=== PATIENT | female | born 1965 | race Caucasian/White ===

== ENCOUNTER 2017-04-17 19:39 | Emergency (ER) | payer BC, OTHER ==
[2017-04-17] MEDS ORDERED: LIDOCAINE 1% INJ (10 MG/ML) 10 ML MDV INJ ONE (20:15)
--- NOTE | 2017-04-17 20:23 | ER Document Report ---
HPI - HPI Patient complains to provider of: abscess Onset: Other Onset/Duration: Gradual Quality of pain: Dull Severity: Mild Pain Level: 2 Context: Pt c/o infected ingrown hair to pubic region. Started about one month ago getting worse. Hx of same in past. States usually drained and put on antibiotics. Pt states her blood sugars have been within usual ranges. Associated Symptoms: None Exacerbated by: Denies Relieved by: Denies Similar symptoms previously: Yes Recently seen / treated by doctor: No - ROS ROS below otherwise negative: Yes Systems Reviewed and Negative: Yes All other systems reviewed and negative - CONSTITUTIONAL Constitutional: DENIES: Fever - EENT EENT: DENIES: Congestion - NEURO Neurology: DENIES: Headache - CARDIOVASCULAR Cardiovascular: DENIES: Chest pain - RESPIRATORY Respiratory: DENIES: Trouble Breathing - GASTROINTESTINAL Gastrointestinal: DENIES: Abdominal Pain - REPRODUCTIVE Reproductive: DENIES: : - MUSCULOSKELETAL Musculoskeletal: DENIES: Extremity pain - DERM Skin Color: Erythema Past Medical History - General Information source: Patient - Social History Smoking Status: Current Every Day Smoker Cigarette use (# per day): Yes Frequency of alcohol use: Occasional Drug Abuse: None Lives with: Family Family History: Reviewed & Not Pertinent Patient has suicidal ideation: No Patient has homicidal ideation: No - Past Medical History Cardiac Medical History: Reports: Hx Hypercholesterolemia Neurological Medical History: Reports: Hx Migraine Endocrine Medical History: Reports: Hx Diabetes Mellitus Type 1 Past Surgical History: Reports: Hx Appendectomy, Hx Orthopedic Surgery - bilateral hands, carpal tunnel, left shoulder repair, Hx Tonsillectomy - Immunizations Hx Diphtheria, Pertussis, Tetanus Vaccination: Yes Vertical Provider Document - CONSTITUTIONAL Agree With Documented VS: Yes Exam Limitations: No Limitations General Appearance: WD/WN, No Apparent Distress - INFECTION CONTROL TRAVEL OUTSIDE OF THE [place] IN LAST 30 DAYS: No - HEENT HEENT: Atraumatic, Normocephalic - RESPIRATORY Respiratory: Breath Sounds Normal, No Respiratory Distress O2 Sat by Pulse Oximetry: 98 - CARDIOVASCULAR Cardiovascular: Regular Rate, Regular Rhythm - GI/ABDOMEN Gastrointestinal: Abdomen Soft - MUSCULOSKELETAL/EXTREMETIES Musculoskeletal/Extremeties: MAEW - NEURO Level of Consciousness: Awake, Alert, Appropriate - DERM Integumentary: Abscess - pubis area Course - Re-evaluation Re-evalutation: 04/17/17 20:43 - Vital Signs Vital signs: Temp Pulse Resp BP Pulse Ox 99.0 F 94 186/96 H 98 04/17/17 19:46 04/17/17 19:46 04/17/17 19:46 04/17/17 19:46 Procedures - Incision and Drainage Mid- Groin Type: Simple Anesthetic type: 1% Lidocaine mL's of anesthetic: 2 Blade size: 11 I&D procedure: Shurclens applied Incision Method: Incision made by scalpel Notes: 04/17/17 20:39 1 in hard area to pubic region with small soft area in center. small amount of purulent drainage expressed from wound pubic area. Pt tolerated procedure well. 04/17/17 20:40 Discharge - Discharge Clinical Impression: Abscess of pubic region, Encounter for incision and drainage procedure Condition: Good Disposition: HOME, SELF-CARE Instructions: Abscess ([facility]), Oral Narcotic Medication ([facility]), Trimethoprim- Sulfa ([facility]) Additional Instructions: keep area clean and dry warm compresses take all meds as prescribed follow up with your PCP next week for recheck, or return here if worsens Prescriptions: Oxycodone HCl 5 mg PO PRN PRN #10 tablet PRN Reason: Sulfamethoxazole/Trimethoprim [Septra-Ds 800-160 mg Tablet] 1 tab PO BID #20 tablet Forms: Return to Work
[2017-04-17] MEDS ORDERED: SULFAMETHOXAZOLE/TRIMETHOPRIM 800-160 MG TABLET PO ONE (20:38)
[2017-04-17] MEDS ORDERED: LIDOCAINE 1% INJ-PF (10 MG/ML) 30 ML SDV INJ ONE (20:38)
[2017-04-17] MEDS ORDERED: CEFTRIAXONE INJ 1000 MG VIAL IM ONE (20:38)
[2017-04-17] MEDS ORDERED: HYDROCODONE/ACETAMINOPHEN 5-325 MG 6 TAB/DSPK PO PRN (20:41)
[2017-04-17] MEDS ORDERED: OXYCODONE HCL IR 5 MG TABLET PO ONE (20:48)
[2017-04-17 21:30] VITALS: BP 145/83
== END 2017-04-17 21:27 | disposition home or self-care (01) ==
LOC: ER 19:39
PROC: 0H97XZZ Drainage of Abdomen Skin, External Approach (ICD-10-PCS; principal; 2017-04-17)
DX: L02.219 Cutaneous abscess of trunk, unspecified (principal); F17.210 Nicotine dependence, cigarettes, uncomplicated; E78.00 Pure hypercholesterolemia, unspecified; E10.9 Type 1 diabetes mellitus without complications
CPT/HCPCS: 10060; 99283; 96372; J3490; J0696

== ENCOUNTER → 2017-05-01 | Outpatient (CLI) | payer OTHER ==
--- NOTE | 2017-05-02 09:52 | RADIOLOGY REPORT (SQ) ---
EXAM DESCRIPTION: T SPINE AP/LAT COMPLETED DATE/TIME: 05/01/2017 6:14 pm REASON FOR STUDY: PAIN IN THORACIC SPINE COMPARISON: None. NUMBER OF VIEWS: Two views. TECHNIQUE: AP and lateral radiographic images acquired of the thoracic spine. LIMITATIONS: None. FINDINGS: MINERALIZATION: Normal. ALIGNMENT: Normal. No scoliosis. VERTEBRAE: No fracture or bone lesion. Maintained height, normal segmentation. DISCS: Multilevel disc space narrowing with osteophytes. HARDWARE: None in the spine. MEDIASTINUM AND SOFT TISSUES: Normal heart size and aortic contour. No soft tissue abnormality. VISUALIZED LUNG SUTTON: Clear. OTHER: There is very mild anterior wedging of L1. IMPRESSION: SPONDYLOSIS WITHOUT BONE LESION OR FRACTURE. TECHNICAL DOCUMENTATION: JOB ID: [id number] [employer]- All Rights Reserved
== END ==
LOC: RAD 17:59
PROVIDERS: ATTEND Anesthesiology Pain Medicine
DX: M54.6 Pain in thoracic spine (principal); M47.894 Other spondylosis, thoracic region
CPT/HCPCS: 72070

== ENCOUNTER → 2017-07-19 | Outpatient (CLI) | payer OTHER ==
--- NOTE | 2017-07-19 14:20 | RADIOLOGY REPORT (SQ) ---
EXAM DESCRIPTION: NM GASTRIC EMPTYING STUDY COMPLETED DATE/TIME: 07/19/2017 1:27 pm REASON FOR STUDY: EARLY SATIETY (R68.81) R68.81 EARLY SATIETY COMPARISON: None. RADIONUCLIDE AND DOSE: The route of agent administration: Oral. 2.09 millicuries Tc-99m Sulfur Colloid. TECHNIQUE: Serial images acquired to 4 hours with each image recorded over a 30 minute time frame. I mage intensity values plotted with respect to time with linear regression algorithm. LIMITATIONS: None. FINDINGS: Patient was observed for 4 hours. Gastric emptying at 60 minutes was 19%. Gastric emptying at 90 minutes was 35%. Gastric emptying at 120 minutes was 51% Gastric emptying at 240 minutes was 87%. IMPRESSION: NORMAL 4 HOUR GASTRIC EMPTYING. TECHNICAL DOCUMENTATION: JOB ID: [id number] [employer]- All Rights Reserved
== END ==
LOC: RAD 07:39
PROVIDERS: ATTEND Internal Medicine Gastroenterology
DX: R68.81 Early satiety (principal)
CPT/HCPCS: 78264; A9541

== ENCOUNTER 2017-08-09 19:09 | Emergency (ER) | payer OTHER ==
[2017-08-09] MEDS ORDERED: LIDOCAINE 1%/EPINEPHRINE INJ 20 ML VIAL INJ ONE (19:37)
--- NOTE | 2017-08-09 20:19 | ER Document Report ---
HPI - HPI Patient complains to provider of: abscess Onset: Other - 9 months Onset/Duration: Persistent Quality of pain: Achy Pain Level: 2 Context: Patient presents complaining of chronic draining skin lesion to the perineum. Patient states that she has seen her primary doctor as well as a labor relations worker for this in the past. Patient states that she has had drainage from this lesion for the past 6 weeks. Patient denies any fever. Patient is concerned she has hidradenitis supurativa Associated Symptoms: Other - Draining skin lesion to perineum. denies: Fever Exacerbated by: Denies Relieved by: Denies Similar symptoms previously: Yes Recently seen / treated by doctor: No - ROS ROS below otherwise negative: Yes Systems Reviewed and Negative: Yes All other systems reviewed and negative - CONSTITUTIONAL Constitutional: DENIES: Fever, Chills - GASTROINTESTINAL Gastrointestinal: DENIES: Abdominal Pain, Nausea - REPRODUCTIVE Reproductive: DENIES: : - DERM Notes: draining abscess Past Medical History - General Information source: Patient - Social History Smoking Status: Current Every Day Smoker Frequency of alcohol use: Occasional Drug Abuse: None Occupation: [employer] Lives with: Spouse/Significant other Family History: Reviewed & Not Pertinent - Past Medical History Cardiac Medical History: Reports: Hx Hypercholesterolemia Neurological Medical History: Reports: Hx Migraine Endocrine Medical History: Reports: Hx Diabetes Mellitus Type 1 Renal/ Medical History: Denies: Hx Peritoneal Dialysis GI Medical History: Reports: Other - Gastroparesis Past Surgical History: Reports: Hx Appendectomy, Hx Orthopedic Surgery - bilateral hands, carpal tunnel, left shoulder repair, Hx Tonsillectomy - Immunizations Hx Diphtheria, Pertussis, Tetanus Vaccination: Yes Vertical Provider Document - CONSTITUTIONAL Agree With Documented VS: Yes Exam Limitations: No Limitations General Appearance: WD/WN, No Apparent Distress - INFECTION CONTROL TRAVEL OUTSIDE OF THE [place] IN LAST 30 DAYS: No - HEENT HEENT: Atraumatic, Normocephalic - NECK Neck: Normal Inspection, Supple - RESPIRATORY Respiratory: Breath Sounds Normal, No Respiratory Distress O2 Sat by Pulse Oximetry: 98 - CARDIOVASCULAR Cardiovascular: Regular Rate, Regular Rhythm - BACK Back: Normal Inspection - MUSCULOSKELETAL/EXTREMETIES Musculoskeletal/Extremeties: FRANCISCO GAGE - NEURO Level of Consciousness: Awake, Alert, Appropriate Motor/Sensory: No Motor Deficit - DERM Integumentary: Warm, Dry Notes: Patient was spontaneously draining open comedone that has a palpable nodular lesion under the skin concerning for sinus tract. Normal skin color, no concern for cellulitis Course - Vital Signs Vital signs: Temp Pulse Resp BP Pulse Ox 98.9 F 96 18 139/79 H 98 08/09/17 19:16 08/09/17 19:16 08/09/17 19:16 08/09/17 19:16 08/09/17 19:16 Discharge - Discharge Clinical Impression: Hidradenitis Condition: Stable Disposition: HOME, SELF-CARE Instructions: Clindamycin ([facility]) Additional Instructions: Return immediately for any new or worsening symptoms Followup with your primary care provider, call tomorrow to make a followup appointment Follow-up with a surgeon for further management Follow up with a labor relations worker for further evaluation Prescriptions: Clindamycin HCl [Cleocin Hcl] 300 mg PO QID #28 capsule Naproxen [Naprosyn 250 Nmg Tablet] 1 tab PO BID #14 tablet Referrals: [facility] [Provider Group] - Follow up in 3-5 days
[2017-08-09] MEDS ORDERED: CLINDAMYCIN HCL 150 MG CAPSULE PO ONE (20:21)
[2017-08-09 21:06] VITALS: BP 126/75
== END 2017-08-09 20:40 | disposition home or self-care (01) ==
LOC: ER 19:09
DX: L73.2 Hidradenitis suppurativa (principal); L02.215 Cutaneous abscess of perineum; F17.200 Nicotine dependence, unspecified, uncomplicated
CPT/HCPCS: 99282

== ENCOUNTER 2017-12-23 19:40 | Emergency (ER) | payer OTHER ==
[2017-12-23] MEDS ORDERED: CLINDAMYCIN HCL 150 MG CAPSULE PO ONE (20:25)
[2017-12-23] MEDS ORDERED: IBUPROFEN 800 MG TABLET PO ONE (20:29)
--- NOTE | 2017-12-23 20:33 | ER Document Report ---
ED Skin Rash/Insect Bite/Abscs - General Chief Complaint: Abscess Stated Complaint: ABSCESS Time Seen by Provider: 12/23/17 19:58 Mode of Arrival: Ambulatory Information source: Patient Notes: 52-year-old female presents to ED for an abscess to the left mons pubis. She states she has had these multiple times over the years and has been diagnosed with hydradenitis and has frequent abscesses. She states she has been cultured multiple times and never has MRSA. She states she went to a surgeon recently and they told her to use warm packs and other home remedies. She states she then went to a urgent care and they told her there was nothing in it that she just needed to do warm soaks. TRAVEL OUTSIDE OF THE [place] IN LAST 30 DAYS: No - HPI Patient complains to provider of: Tender/swollen area Onset: Other - States she gets them frequently this and has been slowly growing for about 4 months Onset/Duration: Gradual Quality of pain: Sharp Severity: Moderate Pain Level: 2 Skin Character: Abscess Quality of rash: Painful Identify cause: No Exacerbated by: Denies Relieved by: Denies Similar symptoms previously: Yes Recently seen / treated by doctor: Yes - Related Data Allergies/Adverse Reactions: codeine [Codeine] Allergy (Verified 12/23/17 19:41) acetaminophen [From Tylenol] Adverse Reaction (Verified 12/23/17 19:41) Past Medical History - General Information source: Patient - Social History Smoking Status: Current Every Day Smoker Cigarette use (# per day): Yes - One third pack per day Chew tobacco use (# tins/day): No Smoking Education Provided: Yes - Warm and Frequency of alcohol use: Social Drug Abuse: None Occupation: Call center Lives with: Spouse/Significant other Family History: Arthritis, CAD, CVA, DM, Hyperlipidemia, Hypertension. denies: COPD, Malignancy, Thyroid Disfunction Patient has suicidal ideation: No Patient has homicidal ideation: No - Past Medical History Cardiac Medical History: Reports: Hx Hypercholesterolemia Pulmonary Medical History: Reports: None EENT Medical History: Reports: None Neurological Medical History: Reports: Hx Migraine Endocrine Medical History: Reports: Hx Diabetes Mellitus Type 1 Renal/ Medical History: Reports: None Malignancy Medical History: Reports: None GI Medical History: Reports: Other - Gastroparesis Musculoskeltal Medical History: Reports Hx Musculoskeletal Deformity, Reports Hx Musculoskeletal Trauma Skin Medical History: Reports Hx Cellulitis, Denies Hx MRSA, Reports Other - Hydradenitis Psychiatric Medical History: Reports: None Traumatic Medical History: Reports: None Infectious Medical History: Reports: None Past Surgical History: Reports: Hx Appendectomy, Hx Hysterectomy, Hx Orthopedic Surgery - bilateral hands, carpal tunnel, left shoulder repair, Hx Tonsillectomy - Immunizations Hx Diphtheria, Pertussis, Tetanus Vaccination: Yes Review of Systems - Review of Systems Constitutional: No symptoms reported EENT: No symptoms reported Cardiovascular: No symptoms reported Respiratory: No symptoms reported Gastrointestinal: No symptoms reported Genitourinary: No symptoms reported Female Genitourinary: Other - Hidradenitis to the mons pubis Musculoskeletal: No symptoms reported Skin: Other - Abscess left mons pubis Hematologic/Lymphatic: No symptoms reported Neurological/Psychological: No symptoms reported -: Yes All other systems reviewed and negative Physical Exam - Vital signs Vitals: Temp Pulse Resp BP Pulse Ox 98.4 F 92 16 132/72 H 99 12/23/17 19:46 12/23/17 19:46 12/23/17 19:46 12/23/17 19:46 12/23/17 19:46 Interpretation: Normal - General General appearance: Appears well, Alert - HEENT Head: Normocephalic, Atraumatic Eyes: Normal Pupils: PERRL - Respiratory Respiratory status: No respiratory distress Chest status: Nontender Breath sounds: Normal Chest palpation: Normal - Cardiovascular Rhythm: Regular Heart sounds: Normal auscultation Murmur: No - Abdominal Inspection: Normal Distension: No distension Bowel sounds: Normal Tenderness: Nontender Organomegaly: No organomegaly - Back Back: Normal, Nontender - Extremities General upper extremity: Normal inspection, Nontender, Normal color, Normal ROM , Normal temperature General lower extremity: Normal inspection, Nontender, Normal color, Normal ROM , Normal temperature, Normal weight bearing. No: Sayda's sign - Neurological Neuro grossly intact: Yes Cognition: Normal Orientation: AAOx4 [place] Coma Scale Eye Opening: Spontaneous [place] Coma Scale Verbal: Oriented [place] Coma Scale Motor: Obeys Commands [place] Coma Scale Total: 15 Speech: Normal Motor strength normal: LUE, RUE, LLE, RLE Sensory: Normal - Psychological Associated symptoms: Normal affect, Normal mood - Skin Skin Temperature: Warm Skin Moisture: Dry Skin Color: Normal Skin irregularity: Abscess - Left mons pubis Course - Re-evaluation Re-evalutation: 12/23/17 20:50 I&D of abscess completed. Patient was treated with clindamycin in the ED as well as ibuprofen. Patient was discharged home with prescription for Bactrim and Keflex and Vicoprofen. Changed antibiotics due to the efficacy of Bactrim and Keflex for this patient. Wound culture sent again to ensure there was no MRSA. Patient was discharged with instructions to follow-up with her primary doctor. Patient verbalized understanding of instructions and agreement with treatment plan. - Vital Signs Vital signs: Temp Pulse Resp BP Pulse Ox 98.4 F 92 16 132/72 H 99 12/23/17 19:46 12/23/17 19:46 12/23/17 19:46 12/23/17 19:46 12/23/17 19:46 Procedures - Incision and Drainage Left mons pubis Time completed: 20:35 Type: Simple Anesthetic type: 1% Lidocaine mL's of anesthetic: 5 Blade size: 11 I&D procedure: Betadine prep applied, Other Incision Method: Incision made by scalpel Amount/type of drainage: Large amount of purulent drainage Discharge - Discharge Clinical Impression: abscess left side of mons pubis Condition: Stable Disposition: HOME, SELF-CARE Additional Instructions: ABSCESS: You have an abscess (boil). This a pus-forming infection, usually due to staph. Some boils may be left to drain on their own, but most require lancing. From the time the tender lump first appears, it may be three or four days before the abscess is ready to deandra. Local heat and rest help at this stage of treatment. An antibiotic may prevent spread of the infection. Once the abscess is opened, packing may be placed into it. This is done so pus is not sealed inside by premature closure of the cavity. The packing will be removed at your follow-up visit or you may be advised to remove it yourself at home. Sometimes this packing must be replaced a few times during healing. The wound will heal with surprisingly little scar. Depending on the size and location of an abscess, healing can take one to four weeks. You may shower and wash the area around the incision site two or three times a day. Antibiotics may be prescribed, but are usually not necessary after an abscess has been drained. If you develop fever, chills, worsening pain, or increasing swelling in the area, call the doctor or return immediately. POST INCISION AND DRAINAGE: You have had an incision made to allow drainage of an abscess. The incision must remain open so that pus and debris can drain from the wound. If the abscess cavity is large, packing is placed. This keeps the tissues from collapsing and trapping pus inside, while the body shrinks the cavity. The packing may need to be replaced every day or two. The physician will instruct you on the packing. Keep a bulky dressing over the area. Replace it if it becomes saturated with blood or pus. Do not disturb the packing (if present). You may shower and cleanse the area with gentle soap and warm water two or three times a day. Local warmth may be soothing, and may promote faster healing. Return if you develop high fever or chills, or if you note spreading redness, increasing swelling, or increasing tenderness. ORAL NARCOTIC MEDICATION: You have been given a prescription for pain control. This medication is a narcotic. It's best taken with food, as nausea can result if taken on an empty stomach. Don't operate machinery or drive within six hours of taking this medication. Do not combine this medicine with alcohol, or with any medication which can cause sedation (such as cold tablets or sleeping pills) unless you get permission from the physician. Narcotics tend to cause constipation. If possible, drink plenty of fluids and eat a diet high in fiber and fruits. CEPHALEXIN: The antibiotic you've been prescribed is a member of the cephalosporin class. This type of antibiotic covers a wide variety of infections, including those of the skin, lungs, and urinary tract. It's useful for staph infections. This antibiotic is slightly similar to the penicillin family. In rare cases , a person who is allergic to penicillin will also be allergic to this medication. If you have had a severe allergic reaction to penicillin, and have not taken this antibiotic since that time, notify your doctor. Antibiotics which cover many germs ("broad spectrum" antibiotics) are more likely to cause diarrhea or "yeast" infections. Women prone to vaginal yeast problems may suffer an attack after taking this antibiotic. In infants, oral thrush (white spots "stuck" on the cheek) or yeast diaper rash may result. See your doctor if these problems occur. Call at once if you develop itching, hives , shortness of breath, or lightheadedness. TRIMETHOPRIM-SULFA: You have been given a prescription for trimethoprim-sulfa (TMS, Septra, Bactrim). This is a combination antibiotic of the sulfa class, often used for urinary tract infections, middle ear infections, bronchitis, shigella intestinal infection, and Pneumocystis pneumonia. TMS is usually well-tolerated. Occasional side effects include nausea and decreased appetite. Septra is not recommended for infants less than two months of age. Do not take this medication if you have experienced severe side effects or allergy to sulfa medicine. You should stop this medicine at once and contact your physician if you develop any rash, joint pain, shortness of breath, bruising, or jaundice ( yellow color in the skin), or if you develop any other new or unusual symptoms. FOLLOW-UP CARE: Most simple abscesses will not require a follow up visit. If you had packing placed in the abscess, remove it as instructed by the physician. If you have been referred to a physician for follow-up care, call the physicians office for an appointment as you were instructed or within the next two days. If you experience worsening or a significant change in your symptoms, return to the Emergency Department at any time for re-evaluation. Prescriptions: Hydrocodone/Ibuprofen [Ibudone 5-200 mg Tablet] 1 each PO Q6HP PRN #7 tablet PRN Reason: Cephalexin Monohydrate [Keflex 500 mg Capsule] 500 mg PO QID #20 capsule Sulfamethoxazole/Trimethoprim [Bactrim Ds Tablet] 1 each PO BID #20 tablet Forms: Elevated Blood Pressure, Smoking Cessation Education, Return to Work Referrals: HUGO ZIMMERMAN MD [NO LOCAL MD] - Follow up as needed
[2017-12-23 21:12] VITALS: BP 124/84
== END 2017-12-23 21:12 | disposition home or self-care (01) ==
LOC: ER 19:40
DX: L02.215 Cutaneous abscess of perineum (principal); L73.2 Hidradenitis suppurativa; Z88.5 Allergy status to narcotic agent; F17.210 Nicotine dependence, cigarettes, uncomplicated; E10.43 Type 1 diabetes mellitus with diabetic autonomic (poly)neuropathy; K31.84 Gastroparesis
CPT/HCPCS: 87070; 87075; 87077; 87186; 87205; 99283

== ENCOUNTER 2018-01-09 16:20 | Emergency (ER) | payer OTHER ==
[2018-01-09] MEDS ORDERED: ASPIRIN 81 MG TABLET, CHEWABLE PO ONE (16:38)
[2018-01-09] MEDS ORDERED: NORMAL SALINE 1000 ML 1,000 ML IV ONE (16:43)
[2018-01-09] MEDS ORDERED: ONDANSETRON HCL INJ/PF 4 MG/2 ML SDV IV ONE (16:44)
--- NOTE | 2018-01-09 16:44 | ER Document Report ---
ED Medical Screen (RME) - General Chief Complaint: Chest Pain Stated Complaint: WEAKNESS,NAUSEA Time Seen by Provider: 01/09/18 16:38 TRAVEL OUTSIDE OF THE [place] IN LAST 30 DAYS: No - HPI Notes: 01/09/18 16:43 Patient coming in for feeling unwell for a month so PCP today EKG performed was told that the EKGs showed that her heart was not getting oxygen. Reviewed the EKG personally and are only EKG did not show any significant pathology at this time. Patient is also complaining of some nausea. - Related Data Allergies/Adverse Reactions: codeine [Codeine] Allergy (Verified 12/23/17 19:41) acetaminophen [From Tylenol] Adverse Reaction (Verified 12/23/17 19:41) Past Medical History - Past Medical History Cardiac Medical History: Reports: Hx Hypercholesterolemia Neurological Medical History: Reports: Hx Migraine Endocrine Medical History: Reports: Hx Diabetes Mellitus Type 1 Renal/ Medical History: Denies: Hx Peritoneal Dialysis Musculoskeltal Medical History: Reports Hx Musculoskeletal Deformity, Reports Hx Musculoskeletal Trauma Skin Medical History: Reports Hx Cellulitis, Denies Hx MRSA Past Surgical History: Reports: Hx Appendectomy, Hx Hysterectomy, Hx Orthopedic Surgery - bilateral hands, carpal tunnel, left shoulder repair, Hx Tonsillectomy - Immunizations Hx Diphtheria, Pertussis, Tetanus Vaccination: Yes Review of Systems - Review of Systems Constitutional: Other - Feeling unwell nausea Physical Exam - Vital signs Vitals: Temp Pulse Resp BP Pulse Ox 98.7 F 100 16 143/82 H 98 01/09/18 16:34 01/09/18 16:34 01/09/18 16:34 01/09/18 16:34 01/09/18 16:34 - Respiratory Respiratory status: No respiratory distress Chest status: Nontender, Accessory muscle use Chest palpation: Normal Course - Vital Signs Vital signs: Temp Pulse Resp BP Pulse Ox 98.7 F 100 16 143/82 H 98 01/09/18 16:34 01/09/18 16:34 01/09/18 16:34 01/09/18 16:34 01/09/18 16:34
[2018-01-09 17:50] LABS: ABSOLUTE BASOPHILS # (AUTO) 0.1 10^3/uL (0.0-0.2); ABSOLUTE EOSINOPHILS # (AUTO) 0.2 10^3/uL (0.0-0.6); ABSOLUTE LYMPHOCYTES (AUTO) 2.2 10^3/uL (0.5-4.7); ABSOLUTE MONOCYTES (AUTO) 0.4 10^3/uL (0.1-1.4); ABSOLUTE NEUT (AUTO) 4.1 10^3/uL (1.7-8.2); BASOPHILS % (AUTO) 1.3 % (0-2); EOSINOPHILS % (AUTO) 2.6 % (0-6); HEMATOCRIT 44.4 % (36.0-47.0); LYMPHOCYTES % (AUTO) 32.2 % (13-45); MEAN CORPUSCULAR HEMOGLOBIN 31.8 pg (27.0-33.4); MEAN CORPUSCULAR HGB CONC 33.8 g/dL (32.0-36.0); MEAN CORPUSCULAR VOLUME 94 fl (80-97); MONOCYTES % (AUTO) 5.4 % (3-13); PLATELET COUNT 380 10^3/uL (150-450); RED BLOOD COUNT 4.72 10^6/uL (3.72-5.28); RED CELL DISTRIBUTION WIDTH 14.4 % (11.5-14.0); SEGMENTED NEUTROPHILS % (AUTO) 58.5 % (42-78); TOTAL CELLS COUNTED % (AUTO) 100 %
--- NOTE | 2018-01-09 17:53 | RADIOLOGY REPORT (SQ) ---
EXAM DESCRIPTION: CHEST SINGLE VIEW COMPLETED DATE/TIME: 01/09/2018 5:42 pm REASON FOR STUDY: cp COMPARISON: None. EXAM PARAMETERS: NUMBER OF VIEWS: One view. TECHNIQUE: Single frontal radiographic view of the chest acquired. RADIATION DOSE: NA LIMITATIONS: None. FINDINGS: LUNGS AND PLEURA: No opacities, masses or pneumothorax. No pleural effusion. MEDIASTINUM AND HILAR STRUCTURES: No masses. Contour normal. HEART AND VASCULAR STRUCTURES: Heart normal in size. Normal vasculature. BONES: No acute findings. HARDWARE: None in the chest. OTHER: No other significant finding. IMPRESSION: NO ACUTE RADIOGRAPHIC FINDING IN THE CHEST. TECHNICAL DOCUMENTATION: JOB ID: [id number] [employer]- All Rights Reserved Reading location - IP/workstation name: [email or web address]
[2018-01-09 17:57] LABS: INTERNATIONAL RATION (INR) 0.94; PROTHROMBIN TIME 13.1 SEC (11.4-15.4)
--- NOTE | 2018-01-09 18:22 | EKG REPORT ---
SEVERITY:- BORDERLINE ECG - SINUS RHYTHM PROBABLE LEFT ATRIAL ABNORMALITY LOW VOLTAGE THROUGHOUT : Confirmed by: Willem Velazquez MD 09-Jan-2018 18:22:09
[2018-01-09 18:25] LABS: CREATINE KINASE MB 0.51 ng/mL (<4.55)
[2018-01-09 18:28] LABS: TROPONIN I < 0.012 ng/mL
[2018-01-09 18:47] LABS: APPEARANCE,URINE CLEAR; BILIRUBIN,URINE NEGATIVE (NEGATIVE); COLOR,URINE YELLOW; GLUCOSE, URINE NEGATIVE (NEGATIVE); KETONES,URINE TRACE mg/dL (NEGATIVE); LEUKOCYTE ESTERASE,URINE NEGATIVE (NEGATIVE); NITRITE,URINE NEGATIVE (NEGATIVE); PROTEIN,URINE NEGATIVE (NEGATIVE); URINE SPECIFIC GRAVITY 1.011; UROBILINOGEN,URINE NEGATIVE mg/dL (<2.0)
[2018-01-09 18:59] LABS: ALANINE AMINOTRANSFERASE 22 U/L (9-52); ALBUMIN 4.3 g/dL (3.5-5.0); ALKALINE PHOSPHATASE 61 U/L (38-126); ANION GAP 13 (5-19); ASPARTATE AMINO TRANSFERASE 18 U/L (14-36); BILIRUBIN,DIRECT 0.3 mg/dL (0.0-0.4); BILIRUBIN,TOTAL 0.6 mg/dL (0.2-1.3); BLOOD UREA NITROGEN 15 mg/dL (7-20); CALCIUM 9.8 mg/dL (8.4-10.2); CARBON DIOXIDE 24 mmol/L (22-30); CHLORIDE 108 mmol/L (98-107); CREATINE KINASE 48 U/L (30-135); GLUCOSE 52 mg/dL (75-110); LIPASE 73.4 U/L (23-300); POTASSIUM 4.4 mmol/L (3.6-5.0); SODIUM 144.8 mmol/L (137-145); TOTAL PROTEIN 7.2 g/dL (6.3-8.2)
[2018-01-09 19:05] LABS: URINE AMPHETAMINES SCREEN NEGATIVE; URINE BARBITURATES SCREEN NEGATIVE; URINE BENZODIAZEPINES SCREEN NEGATIVE; URINE COCAINE SCREEN NEGATIVE; URINE MARIJUANA (THC) SCREEN NEGATIVE; URINE METHADONE SCREEN NEGATIVE; URINE PHENCYCLIDINE SCREEN NEGATIVE
--- NOTE | 2018-01-09 19:18 | ER Document Report ---
ED General <WILMA MILLER - Last Filed: 01/09/18 21:09> - General Mode of Arrival: Ambulatory Information source: Patient TRAVEL OUTSIDE OF THE [place] IN LAST 30 DAYS: No <LINDSAY ROBLERO - Last Filed: 01/09/18 21:51> - General Chief Complaint: Chest Pain Stated Complaint: WEAKNESS,NAUSEA Time Seen by Provider: 01/09/18 16:38 Notes: Patient is a 52-year-old female with a history of migraines and diabetic gastroparesis presents to the emergency department complaining of general malaise with associated symptoms of headaches, dizziness, nausea and heart palpitations. Patient has a history of migraines but states that her current headaches have been different than her migraines. She states her usual migraines are one sided and describes her current headaches as pin-pricks located globally. Patient also mentions her blood sugar being low further stating she has not eaten today and has an insulin pump. Patient was prescribed Gabapentin a few months ago and further states she discontinued taking it because she did not like the way it made her feel. ( LINDSAY ROBLERO) - Related Data Allergies/Adverse Reactions: codeine [Codeine] Allergy (Verified 01/09/18 16:44) acetaminophen [From Tylenol] Adverse Reaction (Verified 01/09/18 16:44) Past Medical History - Social History Cigarette use (# per day): Yes - 1 PPD Smoking Education Provided: No Lives with: Friend <WILMA MILLER - Last Filed: 01/09/18 21:09> - General Information source: Patient - Social History Smoking Status: Current Every Day Smoker Chew tobacco use (# tins/day): No Frequency of alcohol use: Social Drug Abuse: None Family History: Reviewed & Not Pertinent Patient has suicidal ideation: No Patient has homicidal ideation: No - Past Medical History Cardiac Medical History: Reports: Hx Hypercholesterolemia Neurological Medical History: Reports: Hx Migraine Endocrine Medical History: Reports: Hx Diabetes Mellitus Type 1 Musculoskeltal Medical History: Reports Hx Musculoskeletal Deformity, Reports Hx Musculoskeletal Trauma Skin Medical History: Reports Hx Cellulitis Past Surgical History: Reports: Hx Appendectomy, Hx Section, Hx Hysterectomy, Hx Orthopedic Surgery - bilateral hands, carpal tunnel, left shoulder repair, Hx Tonsillectomy - Immunizations Hx Diphtheria, Pertussis, Tetanus Vaccination: Yes <LINDSAY ROBLERO - Last Filed: 01/09/18 21:51> Review of Systems - Review of Systems Constitutional: See HPI, Malaise EENT: No symptoms reported Cardiovascular: See HPI, Palpitations Respiratory: No symptoms reported Gastrointestinal: See HPI, Nausea Genitourinary: No symptoms reported Female Genitourinary: No symptoms reported Musculoskeletal: No symptoms reported Skin: No symptoms reported Hematologic/Lymphatic: No symptoms reported Neurological/Psychological: See HPI, Headaches -: Yes All other systems reviewed and negative <LINDSAY ROBLERO - Last Filed: 01/09/18 21:51> Physical Exam <WILMA MILLER - Last Filed: 01/09/18 21:09> <LINDSAY ROBLERO - Last Filed: 01/09/18 21:51> - Vital signs Vitals: Temp Pulse Resp BP Pulse Ox 98.7 F 100 16 143/82 H 98 01/09/18 16:34 01/09/18 16:34 01/09/18 16:34 01/09/18 16:34 01/09/18 16:34 - Notes Notes: GENERAL: Alert, interacts well. No acute distress. HEAD: Normocephalic, atraumatic. Tender to palpation to the occipital and parietal scalp. EYES: Pupils equal, round, and reactive to light. Extraocular movements intact. ENT: Oral mucosa moist, tongue midline. NECK: Tender to palpation to the posterior cervical muscles. Full range of motion. Supple. Trachea midline. LUNGS: Clear to auscultation bilaterally, no wheezes, rales, or rhonchi. No respiratory distress. HEART: Regular rate and rhythm. No murmurs, gallops, or rubs. ABDOMEN: Soft, non-tender. Non-distended. Bowel sounds present in all 4 quadrants. EXTREMITIES: Moves all 4 extremities spontaneously. No edema, radial and dorsalis pedis pulses 2/4 bilaterally. No cyanosis. NEUROLOGICAL: Alert and oriented x3. Normal speech. PSYCH: Normal affect, normal mood. SKIN: Warm, dry, normal turgor. No rashes or lesions noted. (ANNIKATEEDARREN) Course - Laboratory Result Diagrams: 01/09/18 17:00 01/09/18 18:29 - Diagnostic Test Radiology reviewed: Image reviewed, Reports reviewed - Chest x-ray is unremarkable - EKG Interpretation by Me EKG shows normal: Sinus rhythm, [place], Intervals, QRS Complexes, ST-T Waves Rate: Normal - 97 Rhythm: NSR Voltage: Decreased voltage <PAULWILMA - Last Filed: 01/09/18 21:09> - Laboratory Result Diagrams: 01/09/18 17:00 01/09/18 18:29 <LINDSAY ROBLERO - Last Filed: 01/09/18 21:51> - Re-evaluation Re-evalutation: 01/09/18 19:28 During the patient's physical exam, I was called away to respond to a consultants phone call. When I returned the patient was becoming a little drowsy and obviously hypoglycemic. I was able to determine that she has been running her insulin pump all day without eating all day. She was receiving oral orange juice, I immediately ordered 1 amp of D50 W IV. An IV line had previously been established. 01/09/18 19:58 The patient is now alert, she had made the nurse stop pushing the D50 after about two thirds was given because it was causing pain in her arm. At this time the patient denies pain to her posterior cervical muscles back of her head, does not recall and/or denies saying that it was tender when I palpated it just prior to her becoming too lethargic to answer. She reports that she has had the insulin pump on basal rate all day after giving herself a bolus this morning. She has not eaten all day. She has a sandwich in the car but had not felt hungry. She does have a glucose monitor which she pulled out while I was just now talking with her to check her blood sugar but apparently had not done this recently today. Dr. Pedraza tells me the patient was somewhat disagreeable at triage refusing to allow a chest x-ray because of her insulin pump, and he did not try to persuade her otherwise. She apparently did allow the chest x-ray at some point. 01/09/18 20:07 The patient does report that she has diabetic gastroparesis, however she did have a gastric emptying study done on 07/19/2017 which was normal. 01/09/18 20:22 This 52-year-old female diabetic patient complains of not feeling well for greater than a month. She stated "I do not feel right, something is wrong". She reports having massive headaches, feels like her heart is jumping out of her chest in the mornings when she gets up, has had dizziness mostly in the mornings for more than a month. She reports her doctor told her she should drink more coffee in the morning to help the headache. Reviewing all of her lab work, her somatic complaints, and her lack of response to treatment suggests that much of her problem is actually depression, which is understandable given her health problems. 01/09/18 21:05 I discussed the possibility the depression was contributing to much of her symptoms, and she does not disagree with this idea. She had been treated for depression in her 20s but the Wellbutrin they put her on did not agree with her system. 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 She obviously has made no effort to contact the ophthalmology groups here in [place], and that is more evidence that depression is a considerable part of her problem at this time. Patient reports that her monitor shows her blood sugar is over 200 at this time which is to be expected. The patient will follow her sugars and adjust her insulin pump as needed and will try to eat after she is discharged. (WILMA MILLER) - Vital Signs Vital signs: Temp Pulse Resp BP Pulse Ox 98.7 F 100 10 L 128/75 H 99 01/09/18 16:34 01/09/18 16:34 01/09/18 21:01 01/09/18 21:00 01/09/18 21:01 - Laboratory Laboratory results interpreted by me: 01/09/18 01/09/18 01/09/18 17:00 17:00 17:00 RDW 14.4 H Chloride Glucose Hemoglobin A1c % 6.5 H Urine Ketones TRACE H 01/09/18 18:29 RDW Chloride 108 H Glucose 52 L Hemoglobin A1c % Urine Ketones Discharge <WILMA MILLER - Last Filed: 01/09/18 21:09> <LINDSAY ROBLERO - Last Filed: 01/09/18 21:51> - Discharge Clinical Impression: Dizziness, Malaise, Insulin dependent diabetes mellitus Chronic headaches Qualifiers: Headache type: tension-type Intractability: not intractable Qualified Code(s): G44.229 - Chronic tension-type headache, not intractable Depression Qualifiers: Depression Type: unspecified Qualified Code(s): F32.9 - Major depressive disorder, single episode, unspecified Condition: Stable Disposition: HOME, SELF-CARE Additional Instructions: Most of your symptoms that have been occurring now for several weeks or longer, suggest that depression is a major contributor. You should follow-up with your primary care provider and request referrals to an ct scan special procedures technologist for eye exam, and to a local psychiatrist or psychologist for evaluation of depression. RETURN TO THE EMERGENCY ROOM IF ANY NEW OR WORSENING SYMPTOMS. Referrals: ARUN ZIMMERMAN MD [Primary Care Provider] - Follow up as needed Scribe Attestation: 01/09/18 21:10 I personally performed the services described in the documentation, reviewed and edited the documentation which was dictated to the scribe in my presence, and it accurately records my words and actions. (WILMA MILLER) Scribe Documentation - Scribe Written by Naresh:: Naresh Alonso, 01/09/2018 19:27 acting as scribe for :: Paul <LINDSAY ROBLERO - Last Filed: 01/09/18 21:51>
[2018-01-09] MEDS ORDERED: DEXTROSE 50%-WATER 25 GM/50 ML DISP.SYRIN IV ONE (19:23)
[2018-01-09 21:09] VITALS: BP 128/75
== END 2018-01-09 21:17 | disposition home or self-care (01) ==
LOC: ER 16:20
DX: E10.649 Type 1 diabetes mellitus with hypoglycemia without coma (principal); Z96.41 Presence of insulin pump (external) (internal); G44.229 Chronic tension-type headache, not intractable; F32.9 Major depressive disorder, single episode, unspecified; R53.81 Other malaise; R51 Headache; R42 Dizziness and giddiness; R11.0 Nausea; R00.2 Palpitations; Z86.69 Personal history of other diseases of the nervous system and sense organs; Z88.5 Allergy status to narcotic agent; Z72.0 Tobacco use
CPT/HCPCS: 93005; 99285; 96361; 96374; 96375; 36415; 82553; 82550; 83690; 83735; 84443; 85025; 85610; 80053; 81001; 84484; 80307; 83036; 71045; 93010; J3490; J2405; J7030

== ENCOUNTER 2018-01-11 13:44 | Emergency (ER) | payer OTHER ==
--- NOTE | 2018-01-11 15:05 | ER Document Report ---
ED Medical Screen (RME) - General Chief Complaint: Epigastric Pain Stated Complaint: ABDOMINAL PAIN Time Seen by Provider: 01/11/18 14:53 Mode of Arrival: Ambulatory Information source: Patient TRAVEL OUTSIDE OF THE U.[place] IN LAST 30 DAYS: No - HPI Notes: RAPID MEDICAL EVALUATION DISCLOSURE I have seen this patient as part of a Rapid Medical Evaluation and, if applicable, placed any initially appropriate orders. The patient will be seen and fully evaluated, including a full history and physical exam, by a provider ( in Main ED or Fast Track) when a room becomes available. 01/11/18 15:04 She presents here with epigastric pain and decreased appetite. States she has been a type I diabetic since age 13 and is on insulin pump. She states her sugars were in the 130s today and her hemoglobin A1c is strictly controlled. She does state that she has diabetic gastroparesis although recently she had a gastric emptying study that was normal. States she has some nausea, decreased appetite, just does not feel well in general. She has no vomiting diarrhea fevers urinary symptoms. It was seen at the urgent care and sent here for further evaluation. On physical exam she does have pain to her epigastric area. Right upper quadrant tenderness or periumbilical tenderness. 01/11/18 15:05 - Related Data Allergies/Adverse Reactions: codeine [Codeine] Allergy (Verified 01/11/18 13:45) acetaminophen [From Tylenol] Adverse Reaction (Verified 01/11/18 13:45) Past Medical History - Social History Chew tobacco use (# tins/day): No Frequency of alcohol use: Social Drug Abuse: None - Past Medical History Cardiac Medical History: Reports: Hx Hypercholesterolemia Neurological Medical History: Reports: Hx Migraine Endocrine Medical History: Reports: Hx Diabetes Mellitus Type 1 Renal/ Medical History: Denies: Hx Peritoneal Dialysis Musculoskeltal Medical History: Reports Hx Musculoskeletal Deformity, Reports Hx Musculoskeletal Trauma Skin Medical History: Reports Hx Cellulitis, Denies Hx MRSA Past Surgical History: Reports: Hx Appendectomy, Hx Section, Hx Hysterectomy, Hx Orthopedic Surgery - bilateral hands, carpal tunnel, left shoulder repair, Hx Tonsillectomy - Immunizations Hx Diphtheria, Pertussis, Tetanus Vaccination: Yes Physical Exam - Vital signs Vitals: Temp Pulse Resp BP Pulse Ox 98.4 F 98 16 123/73 97 01/11/18 13:50 01/11/18 13:50 01/11/18 13:50 01/11/18 13:50 01/11/18 13:50 Course - Vital Signs Vital signs: Temp Pulse Resp BP Pulse Ox 98.4 F 98 16 123/73 97 01/11/18 13:50 01/11/18 13:50 01/11/18 13:50 01/11/18 13:50 01/11/18 13:50
[2018-01-11 15:43] LABS: ABSOLUTE BASOPHILS # (AUTO) 0.1 10^3/uL (0.0-0.2); ABSOLUTE EOSINOPHILS # (AUTO) 0.2 10^3/uL (0.0-0.6); ABSOLUTE LYMPHOCYTES (AUTO) 2.1 10^3/uL (0.5-4.7); ABSOLUTE MONOCYTES (AUTO) 0.5 10^3/uL (0.1-1.4); ABSOLUTE NEUT (AUTO) 5.1 10^3/uL (1.7-8.2); EOSINOPHILS % (AUTO) 2.7 % (0-6); HEMATOCRIT 45.3 % (36.0-47.0); HEMOGLOBIN 15.3 g/dL (12.0-15.5); LYMPHOCYTES % (AUTO) 26.5 % (13-45); MEAN CORPUSCULAR HEMOGLOBIN 31.9 pg (27.0-33.4); MEAN CORPUSCULAR HGB CONC 33.8 g/dL (32.0-36.0); MEAN CORPUSCULAR VOLUME 95 fl (80-97); PLATELET COUNT 351 10^3/uL (150-450); RED BLOOD COUNT 4.79 10^6/uL (3.72-5.28); RED CELL DISTRIBUTION WIDTH 14.4 % (11.5-14.0); SEGMENTED NEUTROPHILS % (AUTO) 63.8 % (42-78); TOTAL CELLS COUNTED % (AUTO) 100 %
[2018-01-11] MEDS ORDERED: KETOROLAC TROMETHAMINE INJ/PF 30 MG/1 ML SDV IV ONE (15:55)
[2018-01-11 15:56] LABS: ALANINE AMINOTRANSFERASE 19 U/L (9-52); ALKALINE PHOSPHATASE 48 U/L (38-126); ANION GAP 9 (5-19); ASPARTATE AMINO TRANSFERASE 17 U/L (14-36); BILIRUBIN,DIRECT 0.3 mg/dL (0.0-0.4); BILIRUBIN,TOTAL 1.2 mg/dL (0.2-1.3); BLOOD UREA NITROGEN 12 mg/dL (7-20); CALCIUM 9.7 mg/dL (8.4-10.2); CARBON DIOXIDE 26 mmol/L (22-30); CHLORIDE 108 mmol/L (98-107); GLUCOSE 172 mg/dL (75-110); LIPASE 44.9 U/L (23-300); POTASSIUM 4.2 mmol/L (3.6-5.0); SODIUM 142.9 mmol/L (137-145)
--- NOTE | 2018-01-11 15:57 | ER Document Report ---
ED GI/ - General Chief Complaint: Epigastric Pain Stated Complaint: ABDOMINAL PAIN Time Seen by Provider: 01/11/18 14:53 Mode of Arrival: Ambulatory Information source: Patient Notes: Patient presents complaining of upper abdominal pain that radiates into her chest and neck area off and on for the past month. Patient states that her symptoms seem to have worsened over the past few days. Patient states that she went to an urgent care 2 days ago for the symptoms and they advised her to go to the emergency department then. Patient was here in the ER 2 days ago for this complaint. Patient states that her symptoms have not resolved and she went back to the urgent care and had a repeat EKG and troponin that were both negative. They again advised her to come to the emergency department for additional evaluation. Patient denies any cough or cold symptoms. Patient denies any fever, vomiting or diarrhea. Patient does complain of nausea and decreased appetite. Patient denies any recent immobilization, bedrest or travel. TRAVEL OUTSIDE OF THE [place] IN LAST 30 DAYS: No - HPI Patient complains to provider of: Abdominal pain. No: Vomiting Onset: Other - 1 month Timing/Duration: Worse Quality of pain: Achy Pain Level: 2 Location: Epigastric Vaginal bleeding (Compared to normal period): None Associated symptoms: Chest pain, Loss of appetite, Nausea. denies: Diarrhea, Dysuria, Fever, Urinary hesitancy, Urinary frequency, Urinary retention, Urinary urgency, Vomiting Exacerbated by: Denies Relieved by: Denies Similar symptoms previously: Yes Recently seen / treated by doctor: Yes - Related Data Allergies/Adverse Reactions: codeine [Codeine] Allergy (Verified 01/11/18 13:45) acetaminophen [From Tylenol] Adverse Reaction (Verified 01/11/18 13:45) Past Medical History - General Information source: Patient - Social History Smoking Status: Current Every Day Smoker Chew tobacco use (# tins/day): No Smoking Education Provided: Yes Frequency of alcohol use: Social Drug Abuse: None Occupation: Call center Lives with: Family Family History: Reviewed & Not Pertinent Patient has suicidal ideation: No Patient has homicidal ideation: No - Past Medical History Cardiac Medical History: Reports: Hx Hypercholesterolemia Neurological Medical History: Reports: Hx Migraine Endocrine Medical History: Reports: Hx Diabetes Mellitus Type 1 Renal/ Medical History: Denies: Hx Peritoneal Dialysis Musculoskeltal Medical History: Reports Hx Musculoskeletal Deformity, Reports Hx Musculoskeletal Trauma Skin Medical History: Reports Hx Cellulitis, Denies Hx MRSA Past Surgical History: Reports: Hx Appendectomy, Hx Section, Hx Hysterectomy, Hx Orthopedic Surgery - bilateral hands, carpal tunnel, left shoulder repair, Hx Tonsillectomy - Immunizations Hx Diphtheria, Pertussis, Tetanus Vaccination: Yes Review of Systems - Review of Systems Constitutional: No symptoms reported. denies: Fever, Recent illness EENT: No symptoms reported Cardiovascular: Chest pain. denies: Syncope, Dizziness Respiratory: No symptoms reported. denies: Cough, Short of breath Gastrointestinal: Abdominal pain, Nausea, Constipation, Poor appetite. denies: Diarrhea, Vomiting Genitourinary: No symptoms reported. denies: Dysuria, Flank pain Female Genitourinary: No symptoms reported Musculoskeletal: No symptoms reported. denies: Back pain Skin: No symptoms reported Hematologic/Lymphatic: No symptoms reported Neurological/Psychological: No symptoms reported. denies: Confusion, Headaches Physical Exam - Vital signs Vitals: Temp Pulse Resp BP Pulse Ox 98.4 F 98 16 123/73 97 01/11/18 13:50 01/11/18 13:50 01/11/18 13:50 01/11/18 13:50 01/11/18 13:50 - General General appearance: Appears well, Alert, Anxious In distress: None - HEENT Head: Normocephalic, Atraumatic Eyes: Normal Conjunctiva: Normal Ears: Normal External canal: Normal Tympanic membrane: Normal Nasal: Normal Mouth/Lips: Normal Mucous membranes: Normal Pharynx: Normal. No: Erythema, Exudate Neck: Normal, Supple. No: Lymphadenopathy - Respiratory Respiratory status: No respiratory distress Chest status: Nontender Breath sounds: Normal. No: Rales, Rhonchi, Stridor, Wheezing Chest palpation: Normal - Cardiovascular Rhythm: Regular Heart sounds: S1 appreciated, S2 appreciated Murmur: No - Abdominal Inspection: Normal Distension: No distension Bowel sounds: Normal Tenderness: Tender - epigastric Organomegaly: No organomegaly - Back Back: Normal, Nontender. No: CVA tenderness, Vertebra tenderness - Extremities General upper extremity: Normal inspection, Normal strength General lower extremity: Normal inspection, Normal strength - Neurological Neuro grossly intact: Yes Cognition: Normal Smith Coma Scale Eye Opening: Spontaneous Jose Coma Scale Verbal: Oriented Smith Coma Scale Motor: Obeys Commands Smith Coma Scale Total: 15 - Psychological Associated symptoms: Normal mood, Anxious - Skin Skin Temperature: Warm Skin Moisture: Dry Skin Color: Normal Course - Re-evaluation Re-evalutation: 01/11/18 17:08 Patient returned to room from ultrasound. accelerator technician states that it was a limited study as patient was not cooperative with having the probe placed on the abdomen during the examination. Patient told mechanical service technician that she should not have told staff that her pain was very severe as she did not feel that the pain was that bad, although tells the diesel truck technician that the use of the probe was causing her significant pain during the procedure. 01/11/18 17:47 Ultrasound report reviewed, patient with known history of gallbladder polyp, no concern for acute cholecystitis or choledocholithiasis. Consulted with Dr. Irvin regarding patient presentation, agrees with plan for CTA of chest. 01/11/18 18:52 RN called to the room. Patient states she had increase of left upper quadrant abdominal pain that radiates up into her esophagus into her right ear. Patient states symptoms only lasted for about 30 seconds and have now improved. Patient very anxious about her symptoms and became tearful. 01/11/18 19:18 pt had outpatient troponin today performed at noon that was less than 0.[address] scan without any evidence of PE, no acute findings. Review of survey scan does demonstrate a large stool load and transverse colon. Patient states she has had problems with constipation. Will treat her constipation symptoms and have her to follow-up with her consumer insight analyst to ask as her primary doctor as well as her GI doctor. The patient has atypical chest pain as the patient's chest pain is not suggestive of pulmonary embolus, cardiac ischemia, aortic dissection, or other serious etiology. Given the extremely low risk of these diagnoses for the test in evaluation for these possibilities does not appear to be indicated at this time. Patient has been instructed to return if the symptoms worsen or change in any way. 01/11/18 19:19 - Vital Signs Vital signs: Temp Pulse Resp BP Pulse Ox 98.4 F 69 16 131/80 H 99 01/11/18 13:50 01/11/18 18:50 01/11/18 18:50 01/11/18 18:50 01/11/18 18:50 - Laboratory Result Diagrams: 01/11/18 15:20 01/11/18 15:20 Laboratory results interpreted by me: 01/11/18 01/11/18 15:20 15:20 RDW 14.4 H Chloride 108 H Glucose 172 H 01/11/18 19:18 Labs- Entire Visit 01/11/18 01/11/18 01/11/18 15:20 15:20 15:20 WBC 8.0 RBC 4.79 Hgb 15.3 Hct 45.3 MCV 95 MCH 31.9 MCHC 33.8 RDW 14.4 H Plt Count 351 Seg Neutrophils % 63.8 Lymphocytes % 26.5 Monocytes % 6.0 Eosinophils % 2.7 Basophils % 1.0 Absolute Neutrophils 5.1 Absolute Lymphocytes 2.1 Absolute Monocytes 0.5 Absolute Eosinophils 0.2 Absolute Basophils 0.1 Sodium 142.9 Potassium 4.2 Chloride 108 H Carbon Dioxide 26 Anion Gap 9 BUN 12 Creatinine 0.94 Est GFR ( Amer) > 60 Est GFR (Non-Af Amer) > 60 Glucose 172 H Calcium 9.7 Total Bilirubin 1.2 Direct Bilirubin 0.3 Neonat Total Bilirubin Not Reportable Neonat Direct Bilirubin Not Reportable Neonat Indirect Bili Not Reportable AST 17 ALT 19 Alkaline Phosphatase 48 Total Protein 7.0 Albumin 4.0 Lipase 44.9 TSH 1.44 - Diagnostic Test Radiology reviewed: Image reviewed, Reports reviewed Discharge - Discharge Clinical Impression: Abdominal pain Qualifiers: Abdominal location: upper abdomen, unspecified Qualified Code(s): R10.10 - Upper abdominal pain, unspecified Chest pain Qualifiers: Chest pain type: unspecified Qualified Code(s): R07.9 - Chest pain, unspecified Condition: Stable Disposition: HOME, SELF-CARE Instructions: Abdominal Pain ([facility]), Chest Pain of Unclear Cause ([facility]), Nausea or Vomiting, Nonspecific ([facility]) Additional Instructions: Return immediately for any new or worsening symptoms Followup with your primary care provider, call tomorrow to make a followup appointment Follow-up with a sandstone inspector repairer as well as her GI doctor for recheck Prescriptions: Ondansetron HCl [Zofran 4 mg Tablet] 1 - 2 tab PO Q6 PRN #15 tablet PRN Reason: Polyethylene Glycol 3350 [Miralax] 17 gm PO DAILY #119 powder Forms: Smoking Cessation Education, Return to Work Referrals: ARUN ZIMMERMAN MD [Primary Care Provider] - Follow up as needed JOSE CARLOS MD [NO LOCAL MD] - Follow up as needed KIANA MCCRARY MD [ACTIVE STAFF] - Follow up as needed
--- NOTE | 2018-01-11 17:40 | RADIOLOGY REPORT (SQ) ---
EXAM DESCRIPTION: U/S ABDOMEN LIMITED W/O DOP COMPLETED DATE/TIME: 01/11/2018 5:21 pm REASON FOR STUDY: upper abd pain COMPARISON: None. TECHNIQUE: Dynamic and static grayscale images acquired of the abdomen and recorded on PACS. Additio nal selected color Doppler and spectral images recorded. LIMITATIONS: None. FINDINGS: PANCREAS: Not seen. LIVER: 14 cm. Normal echotexture. LIVER VASCULATURE: Normal directional flow of the main portal vein and hepatic veins. GALLBLADDER: No stones. Questionable small polyp. ULTRASOUND-DETECTED CADET'S SIGN: Negative. INTRAHEPATIC DUCTS AND COMMON DUCT: CBD and intrahepatic ducts normal caliber. No filling defects. INFERIOR VENA CAVA: Normal flow. AORTA: Proximal aorta was not seen. Mid and distal aorta are normal. RIGHT KIDNEY: Normal size, 10 cm. Normal echogenicity. No solid or suspicious masses. No hydronephro sis. No calcifications. PERITONEAL AND RIGHT PLEURAL SPACE: No ascites or effusions. OTHER: No other significant findings. IMPRESSION: Possible small gallbladder polyp. No gallstones are seen. There is no ductal dilatatio n. TECHNICAL DOCUMENTATION: JOB ID: [id number] [employer]- All Rights Reserved Reading location - IP/workstation name: [email or web address]
[2018-01-11] MEDS ORDERED: LIDOCAINE 2% VISCOUS SOLN 20 ML UDCUP PO ONE (17:49)
[2018-01-11] MEDS ORDERED: MAG HYDROX/AL HYDROX/SIMETH SUSP 30 ML UDCUP PO ONE (17:49)
[2018-01-11] MEDS ORDERED: LORAZEPAM INJ 2 MG/1 ML VIAL IV ONE (18:50)
--- NOTE | 2018-01-11 18:51 | EKG REPORT ---
SEVERITY:- NORMAL ECG - SINUS RHYTHM : Confirmed by: Willem Velazquez MD 11-Jan-2018 18:50:22
--- NOTE | 2018-01-11 19:07 | RADIOLOGY REPORT (SQ) ---
EXAM DESCRIPTION: CTA CHEST COMPLETED DATE/TIME: 01/11/2018 6:40 pm REASON FOR STUDY: epig, cp COMPARISON: None. TECHNIQUE: CT scan of the chest performed using helical scanning technique with dynamic intravenous contrast injection. Images reviewed with lung, soft tissue and bone windows. Reconstructed coronal and sagittal MPR images reviewed. Additional 3 dimensional post-processing performed to develop Maximal Intensity Projection images (CA P). All images stored on PACS. All CT scanners at this facility use dose modulation, iterative reconstruction, and/or weight based d osing when appropriate to reduce radiation dose to as low as reasonably achievable (ALARA). [facility]: Dose Right [facility]: CareDose [facility]: Dose Right [facility]: Teradose 4D [facility]: [employer] CONTRAST TYPE AND DOSE: 67 cc Isovue 370- low osmolar. Contrast bolus optimized for the pulmonary arteries. Not diagnostic for the aorta. RENAL FUNCTION: BUN 12 creatinine 0.94 RADIATION DOSE: . LIMITATIONS: None. FINDINGS: LUNGS AND PLEURA: No masses, infiltrates, pneumothorax. No pleural effusions, calcificati ons. AORTA AND GREAT VESSELS: No aneurysm. Contrast bolus not optimized for the aorta. HEART: No pericardial effusion. No significant coronary artery calcifications. PULMONARY ARTERIES: No emboli visualized in the main pulmonary arteries or the segmental branches. HILAR AND MEDIASTINAL STRUCTURES: No identified masses or abnormal nodes. HARDWARE: None in the chest. UPPER ABDOMEN: No significant findings. Limited exam. THYROID AND OTHER SOFT TISSUES: No masses. No adenopathy. BONES: No acute or significant finding. 3D MIPS: Confirm above findings. OTHER: No other significant finding. IMPRESSION: NORMAL CTA OF THE CHEST. NO PULMONARY EMBOLI. COMMENT: Quality ID # [id number]: Final reports with documentation of one or more dose reduction techniques (e.g., Automated exposure control, adjustment of the mA and/or kV according to patient size, use of iterative reconstruction technique) TECHNICAL DOCUMENTATION: JOB ID: [id number] [employer]- All Rights Reserved Reading location - IP/workstation name: [email or web address]
[2018-01-11 19:10] VITALS: BP 131/80
[2018-01-11] MEDS ORDERED: MAGNESIUM CITRATE 296 ML BOTTLE PO ONE (19:20)
== END 2018-01-11 19:50 | disposition home or self-care (01) ==
LOC: ER 13:44
DX: K59.00 Constipation, unspecified (principal); R10.13 Epigastric pain; R07.89 Other chest pain; M54.2 Cervicalgia; R63.0 Anorexia; R11.0 Nausea; E10.9 Type 1 diabetes mellitus without complications; F17.200 Nicotine dependence, unspecified, uncomplicated; R10.12 Left upper quadrant pain; F41.9 Anxiety disorder, unspecified; Z88.5 Allergy status to narcotic agent
CPT/HCPCS: 93005; 99284; 96374; 96375; 36415; 83690; 84443; 85025; 80053; 76705; 71275; 93010; J3490 ×2; J1885; J2060

== ENCOUNTER 2018-11-03 09:46 | Observation (INO) | payer BC, OTHER ==
--- NOTE | 2018-11-03 09:58 | ER Document Report ---
ED Medical Screen (RME) - General Chief Complaint: Abscess Stated Complaint: POSSIBLE ABSCESS Time Seen by Provider: 11/03/18 09:56 Primary Care Provider: RU FRANK MD [Primary Care Provider] - Follow up as needed Mode of Arrival: Ambulatory Information source: Patient TRAVEL OUTSIDE OF THE [place] IN LAST 30 DAYS: No - HPI Patient complains to provider of: abscess Onset: Last week - pt. with h/o HS on anand with new abscess tract in pelvic area. - Related Data Allergies/Adverse Reactions: codeine [Codeine] Allergy (Verified 11/03/18 09:48) acetaminophen [From Tylenol] Adverse Reaction (Verified 11/03/18 09:48) Past Medical History - Past Medical History Cardiac Medical History: Reports: Hx Hypercholesterolemia Neurological Medical History: Reports: Hx Migraine Endocrine Medical History: Reports: Hx Diabetes Mellitus Type 1 Renal/ Medical History: Denies: Hx Peritoneal Dialysis Musculoskeltal Medical History: Reports Hx Musculoskeletal Deformity, Reports Hx Musculoskeletal Trauma Skin Medical History: Reports Hx Cellulitis, Denies Hx MRSA Past Surgical History: Reports: Hx Appendectomy, Hx Section, Hx Hysterectomy, Hx Orthopedic Surgery - bilateral hands, carpal tunnel, left shoulder repair, Hx Tonsillectomy - Immunizations Hx Diphtheria, Pertussis, Tetanus Vaccination: Yes Physical Exam - Vital signs Vitals: Temp Pulse Resp BP Pulse Ox 98.6 F 111 H 16 125/77 98 11/03/18 09:52 11/03/18 09:52 11/03/18 09:52 11/03/18 09:52 11/03/18 09:52 Course - Vital Signs Vital signs: Temp Pulse Resp BP Pulse Ox 98.6 F 111 H 16 125/77 98 11/03/18 09:52 11/03/18 09:52 11/03/18 09:52 11/03/18 09:52 11/03/18 09:52 Doctor's Discharge - Discharge Referrals: RU FRANK MD [Primary Care Provider] - Follow up as needed
[2018-11-03 10:26] LABS: APPEARANCE,URINE SLIGHTLY-CLOUDY; BILIRUBIN,URINE NEGATIVE (NEGATIVE); COLOR,URINE AMBER; GLUCOSE, URINE NEGATIVE (NEGATIVE); KETONES,URINE TRACE mg/dL (NEGATIVE); LEUKOCYTE ESTERASE,URINE NEGATIVE (NEGATIVE); NITRITE,URINE NEGATIVE (NEGATIVE); PROTEIN,URINE NEGATIVE (NEGATIVE); URINE SPECIFIC GRAVITY 1.018
[2018-11-03 10:39] LABS: ABSOLUTE EOSINOPHILS # (AUTO) 0.1 10^3/uL (0.0-0.6); ABSOLUTE MONOCYTES (AUTO) 0.7 10^3/uL (0.1-1.4); ABSOLUTE NEUT (AUTO) 6.4 10^3/uL (1.7-8.2); BASOPHILS % (AUTO) 0.5 % (0-2); EOSINOPHILS % (AUTO) 0.6 % (0-6); HEMATOCRIT 43.1 % (36.0-47.0); HEMOGLOBIN 14.7 g/dL (12.0-15.5); LYMPHOCYTES % (AUTO) 22.3 % (13-45); MEAN CORPUSCULAR HEMOGLOBIN 31.5 pg (27.0-33.4); MEAN CORPUSCULAR HGB CONC 34.1 g/dL (32.0-36.0); MEAN CORPUSCULAR VOLUME 92 fl (80-97); MONOCYTES % (AUTO) 7.3 % (3-13); PLATELET COUNT 367 10^3/uL (150-450); RED BLOOD COUNT 4.68 10^6/uL (3.72-5.28); RED CELL DISTRIBUTION WIDTH 12.8 % (11.5-14.0); SEGMENTED NEUTROPHILS % (AUTO) 69.3 % (42-78); TOTAL CELLS COUNTED % (AUTO) 100 %; WHITE BLOOD COUNT 9.2 10^3/uL (4.0-10.5)
[2018-11-03 10:40] LABS: ALANINE AMINOTRANSFERASE 17 U/L (9-52); ALBUMIN 4.2 g/dL (3.5-5.0); ALKALINE PHOSPHATASE 60 U/L (38-126); ANION GAP 9 (5-19); ASPARTATE AMINO TRANSFERASE 13 U/L (14-36); BILIRUBIN,DIRECT 0.2 mg/dL (0.0-0.4); BILIRUBIN,TOTAL 1.3 mg/dL (0.2-1.3); BLOOD UREA NITROGEN 15 mg/dL (7-20); CALCIUM 9.6 mg/dL (8.4-10.2); CARBON DIOXIDE 24 mmol/L (22-30); CHLORIDE 108 mmol/L (98-107); GLUCOSE 145 mg/dL (75-110); SODIUM 140.7 mmol/L (137-145); TOTAL PROTEIN 7.3 g/dL (6.3-8.2)
--- NOTE | 2018-11-03 11:54 | ER Document Report ---
ED General - General Chief Complaint: Abscess Stated Complaint: POSSIBLE ABSCESS Time Seen by Provider: 11/03/18 09:56 Primary Care Provider: RU FRANK MD [NO LOCAL MD] - Follow up as needed Mode of Arrival: Ambulatory Notes: 52-year-old female with hidradenitis suppurativa presents for outbreak on her perianal area. She states symptoms started on Sunday and started small but it has grown over the course of the week. She states she cannot sit comfortably at work and has to sit on one of her gluteal muscles. She did get a lidocaine steroid injection on Sunday by her physics teacher and states it only worked for 1 day. She complains of acute pain. She denies any fevers or chills, nausea or vomiting, shortness of breath or chest pain. She states she had a recent breakout in between her breasts that was diagnosed as a folliculitis. She has no other complaints TRAVEL OUTSIDE OF THE [place] IN LAST 30 DAYS: No - Related Data Allergies/Adverse Reactions: codeine [Codeine] Allergy (Verified 11/03/18 09:48) acetaminophen [From Tylenol] Adverse Reaction (Verified 11/03/18 09:48) Past Medical History - General Information source: Patient - Social History Smoking Status: Current Every Day Smoker Frequency of alcohol use: Occasional Drug Abuse: None Family History: Reviewed & Not Pertinent Patient has suicidal ideation: No Patient has homicidal ideation: No - Past Medical History Cardiac Medical History: Reports: Hx Hypercholesterolemia Neurological Medical History: Reports: Hx Migraine Endocrine Medical History: Reports: Hx Diabetes Mellitus Type 1 Renal/ Medical History: Denies: Hx Peritoneal Dialysis Musculoskeletal Medical History: Reports Hx Musculoskeletal Deformity, Reports Hx Musculoskeletal Trauma Skin Medical History: Reports Hx Cellulitis, Denies Hx MRSA Past Surgical History: Reports: Hx Appendectomy, Hx Section, Hx Hysterectomy, Hx Orthopedic Surgery - bilateral hands, carpal tunnel, left shoulder repair, Hx Tonsillectomy - Immunizations Hx Diphtheria, Pertussis, Tetanus Vaccination: Yes Review of Systems - Review of Systems Constitutional: See HPI EENT: No symptoms reported Cardiovascular: See HPI Respiratory: See HPI Gastrointestinal: See HPI Genitourinary: See HPI Female Genitourinary: See HPI Musculoskeletal: No symptoms reported Skin: See HPI Hematologic/Lymphatic: No symptoms reported Neurological/Psychological: No symptoms reported Physical Exam - Vital signs Vitals: Temp Pulse Resp BP Pulse Ox 98.6 F 111 H 16 125/77 98 11/03/18 09:52 11/03/18 09:52 11/03/18 09:52 11/03/18 09:52 11/03/18 09:52 - Notes Notes: PHYSICAL EXAMINATION: Reviewed vital signs and charting by RN GENERAL: Alert, interacts well. No acute distress. HEAD: Normocephalic, atraumatic. EYES: Pupils equal, round. Extraocular movements intact. NECK: Full range of motion. Trachea midline. LUNGS: Clear to auscultation bilaterally, no wheezes, rales, or rhonchi. No r espiratory distress. HEART: Regular rate and rhythm. No murmur ABDOMEN: soft, non-tender. Non-distended. Bowel sounds present in all 4 quadrants. no McBurney's point tenderness, no Gordon sign. EXTREMITIES: Moves all 4 extremities spontaneously. No edema, No cyanosis. PSYCH: Dysphoric , normal affect, normal mood. SKIN: Warm, dry, normal turgor. 3 cm x 8 cm abscess and gluteal cleft superficial to the ileum that extends into the right labia, tender to palpation, erythematous Course - Re-evaluation Re-evalutation: 11/03/18 12:18 Patient is a type I diabetic with a CGM and an insulin pump who presents with a hidradenitis suppurativa lesion superficial to the ileum on her right gluteal cleft that extends into the right labia 3 cm x [address] Mary, surgeon, who came and saw the patient and does want to take her to the operating room. Because she has medical comorbidities he would like the medicine service to admit her with him as a clinical services consultant. I will initiate a call to Dr. Bhandari. 11/03/18 12:23 Dr. Bhandari will accept patient for full admission with Dr. Mary clinical services consultant. Patient is n.p.o. and plan to go to the OR today. - Vital Signs Vital signs: Temp Pulse Resp BP Pulse Ox 98.6 F 111 H 16 125/77 98 11/03/18 09:52 11/03/18 09:52 11/03/18 09:52 11/03/18 09:52 11/03/18 09:52 - Laboratory Result Diagrams: 11/03/18 10:15 11/03/18 10:15 Laboratory results interpreted by me: 11/03/18 11/03/18 09:59 10:15 Chloride 108 H Est GFR (Non-Af Amer) 57 L Glucose 145 H AST 13 L Urine Ketones TRACE H Urine Urobilinogen 2.0 H Discharge - Discharge Clinical Impression: Hidradenitis suppurativa Condition: Stable Disposition: ADMITTED INPATIENT Admitting Provider: Hospitalist Unit Admitted: Medical Floor Referrals: RU FRANK MD [NO LOCAL MD] - Follow up as needed
--- NOTE | 2018-11-03 13:48 | Operative Report ---
Operative Report DATE OF SURGERY: 11/03/18 PREOPERATIVE DIAGNOSIS: 1. History of hidradenitis suppurativa. 2. Pharmacol ogically immunosuppressed. 3. Type 1 diabetes mellitus. 4. Right perineal abscess POSTOPERATIVE DIAGNOSIS: Same with right perineal abscess OPERATION: Focused ultrasound of the right perineal area SURGEON: VICKY MARY ANESTHESIA: Other - None TISSUE REMOVED OR ALTERED: See below COMPLICATIONS: None ESTIMATED BLOOD LOSS: None INTRAOPERATIVE FINDINGS: See below PROCEDURE: Patient was evaluated in the emergency department by Dr. Mary earlier in the morning. She has a history of hidradenitis suppurativa, on Humira, also insulin-dependent diabetic. She has had multiple groin abscesses and infections drained. For approximately week she has had a right perineal and right perianal swelling erythema and pain. She came to the emergency department where she was found to have stable vital signs and a normal white blood cell count. Bedside ultrasound by the [place] carmina was nondiagnostic. My clinical impression is that the patient has an abscess in the posterior lateral perineal region and performing repeat ultrasonography at bedside With the patient rolled in left lateral cubitus position, gel was placed on the skin and the variable frequency linear transducer was used to scan in this area. There is evidence of hypoechogenicity, and fluid moving in the subcutaneous tissue. Area was very tender impression was that the patient had a perianal abs cess. Recommendations: 1. Keep patient n.p.o. 2. Take patient to the operating room for exam under anesthesia, abscess drainage, no drainage, and necessary surgery. 3. The above explained to the patient and her significant other; I believe she understands and agrees to proceed.
[2018-11-03] MEDS ORDERED: LIDOCAINE 2% INJ-PF (100 MG/5 ML) SYRINGE ONE (13:51)
[2018-11-03] MEDS ORDERED: FENTANYL CITRATE INJ/PF 100 MCG/2 ML AMPUL ONE (13:51)
[2018-11-03] MEDS ORDERED: ONDANSETRON HCL INJ/PF 4 MG/2 ML SDV ONE (13:52)
[2018-11-03] MEDS ORDERED: PROPOFOL INJ 200 MG/20 ML VIAL IV ONE (13:52)
[2018-11-03] MEDS ORDERED: MIDAZOLAM 2 MG/2 ML INJ ONE (13:52)
--- NOTE | 2018-11-03 13:55 | PDOC H&P ---
History of Present Illness Admission Date/PCP: 11/03/18 12:56 LON MEDINA MD Patient complains of: increasing lump on right buttock History of Present Illness: CIPRIANO FLORES is a 52 year old female with a PMH of diabetes mellitus type 1 on insulin pump and has a CGM, hyperlipidemia, migraine and hidradenitis suppurative on Humira who presented with increasing lump on her right perineal area. She says she had a cortisone shot on the same site by her cement sprayer helper kristal morillo. 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 She denies fever or chills. Past Medical History Cardiac Medical History: Reports: Hyperlipidema Neurological Medical History: Reports: Migraine Endocrine Medical History: Reports: Diabetes Mellitus Type 1 Past Surgical History Past Surgical History: Reports: Appendectomy, Section, Hysterectomy, Orthopedic Surgery - bilateral hands, carpal tunnel, left shoulder repair, Tonsillectomy Social History Smoking Status: Current Every Day Smoker Family History Family History: Reviewed & Not Pertinent Parental Family History Reviewed: Yes - no premature CAD Children Family History Reviewed: No Sibling(s) Family History Reviewed.: No Medication/Allergy Home Medications: L.acidoph,Paracasei, B.lactis [Probiotic] 1 cap PO DAILY 01/09/18 Ondansetron HCl [Zofran 4 mg Tablet] 1 - 2 tab PO Q6 PRN #15 tablet 01/11/18 Polyethylene Glycol 3350 [Miralax] 17 gm PO DAILY #119 powder 01/11/18 Allergies/Adverse Reactions: codeine [Codeine] Allergy (Verified 11/03/18 09:48) acetaminophen [From Tylenol] Adverse Reaction (Verified 11/03/18 09:48) Review of Systems All systems: reviewed and no additional remarkable complaints except as stated - as mentioned in HPI Physical Exam Vital Signs: Temp Pulse Resp BP Pulse Ox 98.5 F 79 16 113/62 99 11/03/18 12:45 11/03/18 12:45 11/03/18 09:52 11/03/18 12:45 11/03/18 12:45 Intake & Output 11/02/18 11/03/18 11/04/18 06:59 06:59 06:59 Weight 163 lb 9.328 oz General appearance: PRESENT: no acute distress, well-developed, well-nourished Head exam: PRESENT: atraumatic, normocephalic Eye exam: PRESENT: conjunctiva pink, EOMI, PERRLA. ABSENT: scleral icterus Ear exam: PRESENT: normal external ear exam Mouth exam: PRESENT: moist, tongue midline Neck exam: ABSENT: carotid bruit, JVD, lymphadenopathy, thyromegaly Respiratory exam: PRESENT: clear to auscultation kuldip. ABSENT: rales, rhonchi, wheezes Cardiovascular exam: PRESENT: RRR. ABSENT: diastolic murmur, rubs, systolic murmur Pulses: PRESENT: normal dorsalis pedis pul GI/Abdominal exam: PRESENT: normal bowel sounds, soft. ABSENT: distended, guarding, mass, organolmegaly, rebound, tenderness Rectal exam: PRESENT: other - note of a ~3x3 cm erythematous, minimally tender lump on the inner right buttock, no active drainage Results Laboratory Results: 11/03/18 10:15 11/03/18 10:15 11/03/18 11/03/18 11/03/18 09:59 10:15 10:15 WBC 9.2 RBC 4.68 Hgb 14.7 Hct 43.1 MCV 92 MCH 31.5 MCHC 34.1 RDW 12.8 Plt Count 367 Seg Neutrophils % 69.3 Lymphocytes % 22.3 Monocytes % 7.3 Eosinophils % 0.6 Basophils % 0.5 Absolute Neutrophils 6.4 Absolute Lymphocytes 2.0 Absolute Monocytes 0.7 Absolute Eosinophils 0.1 Absolute Basophils 0.0 Sodium 140.7 Potassium 4.0 Chloride 108 H Carbon Dioxide 24 Anion Gap 9 BUN 15 Creatinine 1.02 Est GFR ( Amer) > 60 Est GFR (Non-Af Amer) 57 L Glucose 145 H Calcium 9.6 Total Bilirubin 1.3 AST 13 L ALT 17 Alkaline Phosphatase 60 Total Protein 7.3 Albumin 4.2 Urine Color PRATIMA Urine Appearance SLIGHTLY-CLOUDY Urine pH 5.0 Ur Specific [place] 1.018 Urine Protein NEGATIVE Urine Glucose (UA) NEGATIVE Urine Ketones TRACE H Urine Blood NEGATIVE Urine Nitrite NEGATIVE Ur Leukocyte Esterase NEGATIVE Urine WBC (Auto) 2 Urine RBC (Auto) 1 Assessment & Plan - Diagnosis (1) Hidradenitis suppurativa Is this a current diagnosis for this admission?: Yes Plan: Possible perineal abscess. Will start IV ciprofloxacin. Surgery is planning for possible incision & debridement. (2) Diabetes mellitus type 1 Is this a current diagnosis for this admission?: Yes Plan: Continue insulin pump. Patient has a CGM. - Time Time Spent: 30 to 50 Minutes
[2018-11-03] MEDS ORDERED: BUPIVACAINE HCL 0.25 % INJ/PF (2.5 MG/1 ML) 30 ML VIAL ONE (13:59)
[2018-11-03] MEDS ORDERED: METRONIDAZOLE 500 MG/NS RTU 500 MG/100 ML RTUPB IV ONE (14:18)
[2018-11-03] MEDS ORDERED: ONDANSETRON HCL INJ/PF 4 MG/2 ML SDV IV PRN ×2 (14:43→17:26)
[2018-11-03] MEDS ORDERED: FENTANYL CITRATE INJ/PF 100 MCG/2 ML AMPUL IV PRN ×3 (14:43)
[2018-11-03] MEDS ORDERED: PROMETHAZINE HCL INJ 25 MG/1 ML VIAL IV PRN ×2 (14:43)
[2018-11-03] MEDS ORDERED: MEPERIDINE HCL/PF INJ 25 MG/1 ML DISP.SYRIN IV PRN (14:43)
[2018-11-03] MEDS ORDERED: DIPHENHYDRAMINE HCL 50 MG/ML VIAL IV PRN (14:43)
--- NOTE | 2018-11-03 14:53 | Operative Report ---
Nonrecallable Operative Report DATE OF SURGERY: 11/03/18 PREOPERATIVE DIAGNOSIS: Perianal abscess POSTOPERATIVE DIAGNOSIS: Same OPERATION: 1. Drainage, debridement, packing of right anterior lateral perianal abscess. 2. Limited anoscopy SURGEON: VICKY STEPHENS ANESTHESIA: LMAC TISSUE REMOVED OR ALTERED: Pus, skin, necrotic debris COMPLICATIONS: None ESTIMATED BLOOD LOSS: Scant INTRAOPERATIVE FINDINGS: See below PROCEDURE: Patient was taken to the preop holding her to the main operating room where LMAC anesthesia was induced. Patient was placed supine position, lithotomy, perineum exposed, limited shaved of hair, prepped and draped in sterile fashion. Surgical plan surgical timeout conducted. Based on physical examination, and preoperative ultrasound, the point of maximum distention was the right anterior lateral perineal area parallel to the perineal body. Skin was anesthetized with 1% plain lidocaine, 15 cc. Approximately 3 cm incision was made parallel to the perineum, essentially vertically oriented. Pus was broken up with the index finger. The incision was made with a #10 blade. Skin, and subcutaneous tissue was debrided sharply with pickups and tenotomy scissors. All loculations were broken up with the index finger. Foul- smelling purulent pus was cultured and evacuated. Wound irrigated multiple times with peroxide saline and the sequence repeated I visualized the anal rectal canal to accept 2 adult fingers. The bullet anoscope was inserted into the anal canal. By visual and manual palpation I could not feel an internal opening, however the procedure was limited due to poor access to the anal canal secondary to the patient in the lithotomy po sition. Nonetheless I did not believe there was an obvious fistula and they know. I did probe the abscess cavity from the operative opening, and no immediate tracking was apparent. I felt the operation was complete. The wound was packed open with 12 inches of iodoform packing. Patient tolerated procedure well, taken to recovery room in stable condition. Impression: Anal abscess status post drainage in immunocompromised patient Recommendations 1. Continue empiric antimicrobial therapy 2. Await cultures and tailor antibiotic therapy accordingly 3. Surgical team will remove packing tomorrow morning, and likely clear patient to be discharged home.
[2018-11-03] MEDS ORDERED: KETOROLAC TROMETHAMINE 10 MG TABLET PO PRN (17:26)
[2018-11-03] MEDS ORDERED: KETOROLAC TROMETHAMINE INJ/PF 30 MG/1 ML SDV ONE (17:38)
[2018-11-03] MEDS ORDERED: CIPROFLOXACIN 200 MG/D5W RTU 200 MG/100 ML RTUPB IV SCH (22:00)
[2018-11-04] MEDS: KETOROLAC TROMETHAMINE INJ/PF 30 MG/1 ML SDV IV PRN ×2 (00:02→06:46)
[2018-11-04] MEDS ORDERED: FONDAPARINUX SODIUM INJ 2.5 MG/0.5 ML DISP.SYRIN SUBCUT SCH (08:00)
--- NOTE | 2018-11-04 08:08 | PDOC PROGRESS REPORT ---
Subjective Progress Note for:: 11/04/18 Subjective:: feels better this am after i and d of perirectal abscess Reason For Visit: HIDRADENITIS SUPPURATIVA,DM 1 perirectal abscess Physical Exam Vital Signs: Temp Pulse Resp BP Pulse Ox 98.2 F 76 16 105/72 99 11/04/18 04:37 11/04/18 04:37 11/04/18 04:37 11/04/18 04:37 11/04/18 04:37 Intake & Output 11/03/18 11/04/18 11/05/18 06:59 06:59 06:59 Intake Total 1910 Output Total 1560 Balance 350 Weight 74.7 kg General appearance: PRESENT: no acute distress Head exam: PRESENT: atraumatic Eye exam: PRESENT: EOMI GI/Abdominal exam: PRESENT: soft Rectal exam: PRESENT: other - perirectal incision clean, pack removed min pus Results Laboratory Results: 11/03/18 10:15 11/03/18 10:15 11/03/18 11/03/18 11/03/18 09:59 10:15 10:15 WBC 9.2 RBC 4.68 Hgb 14.7 Hct 43.1 MCV 92 MCH 31.5 MCHC 34.1 RDW 12.8 Plt Count 367 Seg Neutrophils % 69.3 Lymphocytes % 22.3 Monocytes % 7.3 Eosinophils % 0.6 Basophils % 0.5 Absolute Neutrophils 6.4 Absolute Lymphocytes 2.0 Absolute Monocytes 0.7 Absolute Eosinophils 0.1 Absolute Basophils 0.0 Sodium 140.7 Potassium 4.0 Chloride 108 H Carbon Dioxide 24 Anion Gap 9 BUN 15 Creatinine 1.02 Est GFR ( Amer) > 60 Est GFR (Non-Af Amer) 57 L Glucose 145 H Calcium 9.6 Total Bilirubin 1.3 AST 13 L ALT 17 Alkaline Phosphatase 60 Total Protein 7.3 Albumin 4.2 Urine Color PRATIMA Urine Appearance SLIGHTLY-CLOUDY Urine pH 5.0 Ur Specific [place] 1.018 Urine Protein NEGATIVE Urine Glucose (UA) NEGATIVE Urine Ketones TRACE H Urine Blood NEGATIVE Urine Nitrite NEGATIVE Ur Leukocyte Esterase NEGATIVE Urine WBC (Auto) 2 Urine RBC (Auto) 1 Assessment & Plan - Plan Summary Plan Summary: s/p i and d perirectal abscess now doing better pack removed recommend bid sitz baths pt could be discharge from surgery standpoint needs a f/u in 7-10 days in surgery clinic.
[2018-11-04 09:51] VITALS: BP 105/72
[2018-11-04] MEDS ORDERED: ATORVASTATIN CALCIUM 40 MG TABLET PO SCH (10:00)
[2018-11-04] MEDS ORDERED: LANSOPRAZOLE 30 MG TAB.RAP.DR PO SCH (10:00)
[2018-11-04] MEDS ORDERED: LISINOPRIL 10 MG TABLET PO SCH (10:00)
[2018-11-04] MEDS ORDERED: TOPIRAMATE 100 MG TABLET PO SCH (10:00)
--- NOTE | 2018-11-04 10:40 | PDOC DISCHARGE SUMMARY ---
General - Admit/Disc Date/PCP Admission Date/Primary Care Provider: 11/03/18 12:56 LON MEDINA MD Discharge Date: 11/04/18 - Discharge Diagnosis (1) Hidradenitis suppurativa Is this a current diagnosis for this admission?: Yes (2) Diabetes mellitus type 1 Is this a current diagnosis for this admission?: Yes (3) Perineal abscess Is this a current diagnosis for this admission?: Yes - Additional Information Resuscitation Status: Full Code Discharge Diet: Regular Home Medications: Lisinopril 20 mg PO DAILY 11/03/18 Pantoprazole Sodium 40 mg PO DAILY 11/03/18 Rosuvastatin Calcium [Crestor 20 mg Tablet] 20 mg DAILY 11/03/18 Topiramate [Topamax] 150 mg PO DAILY 11/03/18 History of Present Illness History of Present Illness: CIPRIANO DOYLE is a 52 year old female with a PMH of diabetes mellitus type 1 on insulin pump and has a CGM, hyperlipidemia, migraine and hidradenitis suppurative on Humira who presented with increasing lump on her right perineal area. She says she had a cortisone shot on the same site by her agency sales director last week. 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 She denies fever or chills. Hospital Course Hospital Course: Ms. Dolye was admitted for hidradenitis suppurativa and possible right perineal abscess. She was initially started on IV cipro. Surgery evaluated her and she went for I&D on 11/03 of the perineal abscess. She was cleared for discharge and was recommended Sitz bath and travis ff up with the surgery wound clinic. Surgery did not deem she needs continued PO antibiotics as the abscess was adequately evacuated well. Physical Exam Vital Signs: Temp Pulse Resp BP Pulse Ox 98.2 F 73 18 105/72 99 11/04/18 09:48 11/04/18 09:48 11/04/18 09:48 11/04/18 09:48 11/04/18 09:48 Intake & Output 11/03/18 11/04/18 11/05/18 06:59 06:59 06:59 Intake Total 1910 Output Total 1560 Balance 350 Weight 164 lb 10.965 oz Results Laboratory Results: 11/03/18 10:15 11/03/18 10:15 11/03/18 11/03/18 11/03/18 09:59 10:15 10:15 WBC 9.2 RBC 4.68 Hgb 14.7 Hct 43.1 MCV 92 MCH 31.5 MCHC 34.1 RDW 12.8 Plt Count 367 Seg Neutrophils % 69.3 Lymphocytes % 22.3 Monocytes % 7.3 Eosinophils % 0.6 Basophils % 0.5 Absolute Neutrophils 6.4 Absolute Lymphocytes 2.0 Absolute Monocytes 0.7 Absolute Eosinophils 0.1 Absolute Basophils 0.0 Sodium 140.7 Potassium 4.0 Chloride 108 H Carbon Dioxide 24 Anion Gap 9 BUN 15 Creatinine 1.02 Est GFR ( Amer) > 60 Est GFR (Non-Af Amer) 57 L Glucose 145 H Calcium 9.6 Total Bilirubin 1.3 AST 13 L ALT 17 Alkaline Phosphatase 60 Total Protein 7.3 Albumin 4.2 Urine Color PRATIMA Urine Appearance SLIGHTLY-CLOUDY Urine pH 5.0 Ur Specific [place] 1.018 Urine Protein NEGATIVE Urine Glucose (UA) NEGATIVE Urine Ketones TRACE H Urine Blood NEGATIVE Urine Nitrite NEGATIVE Ur Leukocyte Esterase NEGATIVE Urine WBC (Auto) 2 Urine RBC (Auto) 1 Qualifiers - * PATIENT BEING DISCHARGED WITH ANY OF THE FOLLOWING DIAGNOSIS: No
== END 2018-11-04 10:30 | disposition home or self-care (01) ==
LOC: ER 09:46 → EH 12:56 → INTOOBSV 12:56 → 2N 15:56
PROVIDERS: ADMIT Internal Medicine; ATTEND Internal Medicine
PROC: 0D9Q0ZX Drainage of Anus, Open Approach, Diagnostic (ICD-10-PCS; principal; 2018-11-03 14:45)
DX: L02.215 Cutaneous abscess of perineum (principal); L73.2 Hidradenitis suppurativa; E10.9 Type 1 diabetes mellitus without complications; E78.5 Hyperlipidemia, unspecified; Z79.899 Other long term (current) drug therapy; Z96.41 Presence of insulin pump (external) (internal); F17.200 Nicotine dependence, unspecified, uncomplicated; Z90.49 Acquired absence of other specified parts of digestive tract; Z98.890 Other specified postprocedural states
CPT/HCPCS: 99284; 36415; 87070; 87205; 82962; 85025; 87075; 87077; 80053; 81001; 46050; G0378 ×2; J2250; J3010; J2001; J1885 ×2; J2405; J2704; 87186; 902

== ENCOUNTER 2019-01-12 14:24 | Emergency (ER) | payer BC ==
--- NOTE | 2019-01-12 14:43 | ER Document Report ---
Addendum entered and electronically signed by DIONICIO CHUN PA-C 01/12/19 14:44: Course - Re-evaluation Re-evalutation: 01/12/19 14:44 Pt is correcting her response that she does have 'some tenderness' when she is sitting. - Vital Signs Vital signs: Temp Pulse Resp BP Pulse Ox 98 F 103 H 18 139/84 H 100 01/12/19 14:28 01/12/19 14:28 01/12/19 14:28 01/12/19 14:28 01/12/19 14:28 Original Note: ED Medical Screen (RME) - General Chief Complaint: Post Surgical Bleeding Stated Complaint: POST OP PROBLEMS Time Seen by Provider: 01/12/19 14:37 Primary Care Provider: JAVED FLORES PA [Primary Care Provider] - Follow up as needed TRAVEL OUTSIDE OF THE [place] IN LAST 30 DAYS: No - HPI Notes: 01/12/19 14:41 Patient is a 53-year-old female with a history of insulin-dependent diabetes as well as hidradenitis supporativa who presents complaining of new onset bleeding near her anus/perineal area after having surgery in November. Patient states that she started having bleeding again last night from the incisional site. She otherwise does not have any associated pain. She is eating and drinking without difficulty. She is urinating normally and having normal bowel movements. No other vaginal discharge, odor, or bleeding. Denies LARRY, fever, neck pain, URI, CP, SOB, Abd pain. I have treated and performed a rapid initial assessment of this patient. A comprehensive ED assessment and evaluation of the patient, analysis of test results and completion of medical decision making process will be conducted by additional ED providers. PHYSICAL EXAMINATION: GENERAL: Well-appearing, well-nourished and in no acute distress. A&Ox4. Answers questions appropriately. LUNGS: Breath sounds clear to auscultation bilaterally and equal. No wheezes rales or rhonchi. HEART: Regular rate and rhythm without murmurs, rubs, gallops. Pt will need to be placed in gown for further evaluation. - Related Data Allergies/Adverse Reactions: codeine [Codeine] Allergy (Verified 01/12/19 14:25) acetaminophen [From Tylenol] Adverse Reaction (Verified 01/12/19 14:25) Past Medical History - Past Medical History Cardiac Medical History: Reports: Hx Hypercholesterolemia Neurological Medical History: Reports: Hx Migraine Endocrine Medical History: Reports: Hx Diabetes Mellitus Type 1 Renal/ Medical History: Denies: Hx Peritoneal Dialysis Musculoskeltal Medical History: Reports Hx Musculoskeletal Deformity, Reports Hx Musculoskeletal Trauma Skin Medical History: Reports Hx Cellulitis, Denies Hx MRSA Past Surgical History: Reports: Hx Appendectomy, Hx Section, Hx Hysterectomy, Hx Orthopedic Surgery - bilateral hands, carpal tunnel, left shoulder repair, Hx Tonsillectomy - Immunizations Hx Diphtheria, Pertussis, Tetanus Vaccination: Yes Physical Exam - Vital signs Vitals: Temp Pulse Resp BP Pulse Ox 98 F 103 H 18 139/84 H 100 01/12/19 14:28 01/12/19 14:28 01/12/19 14:28 01/12/19 14:28 01/12/19 14:28 Course - Vital Signs Vital signs: Temp Pulse Resp BP Pulse Ox 98 F 103 H 18 139/84 H 100 01/12/19 14:28 01/12/19 14:28 01/12/19 14:28 01/12/19 14:28 01/12/19 14:28 Doctor's Discharge - Discharge Referrals: JAVED FLORES PA [Primary Care Provider] - Follow up as needed
[2019-01-12 15:20] LABS: ABSOLUTE BASOPHILS # (AUTO) 0.1 10^3/uL (0.0-0.2); ABSOLUTE EOSINOPHILS # (AUTO) 0.1 10^3/uL (0.0-0.6); ABSOLUTE LYMPHOCYTES (AUTO) 2.8 10^3/uL (0.5-4.7); ABSOLUTE MONOCYTES (AUTO) 0.5 10^3/uL (0.1-1.4); ABSOLUTE NEUT (AUTO) 3.3 10^3/uL (1.7-8.2); EOSINOPHILS % (AUTO) 1.6 % (0-6); HEMATOCRIT 44.3 % (36.0-47.0); HEMOGLOBIN 14.7 g/dL (12.0-15.5); MEAN CORPUSCULAR HEMOGLOBIN 30.8 pg (27.0-33.4); MEAN CORPUSCULAR HGB CONC 33.2 g/dL (32.0-36.0); MEAN CORPUSCULAR VOLUME 93 fl (80-97); MONOCYTES % (AUTO) 7.4 % (3-13); PLATELET COUNT 360 10^3/uL (150-450); RED BLOOD COUNT 4.76 10^6/uL (3.72-5.28); RED CELL DISTRIBUTION WIDTH 14.9 % (11.5-14.0); TOTAL CELLS COUNTED % (AUTO) 100 %; WHITE BLOOD COUNT 6.8 10^3/uL (4.0-10.5)
[2019-01-12 15:42] LABS: ALANINE AMINOTRANSFERASE 17 U/L (9-52); ALBUMIN 3.9 g/dL (3.5-5.0); ALKALINE PHOSPHATASE 74 U/L (38-126); ANION GAP 10 (5-19); ASPARTATE AMINO TRANSFERASE 17 U/L (14-36); BILIRUBIN,DIRECT 0.3 mg/dL (0.0-0.4); BILIRUBIN,TOTAL 0.7 mg/dL (0.2-1.3); BLOOD UREA NITROGEN 14 mg/dL (7-20); CALCIUM 9.7 mg/dL (8.4-10.2); CARBON DIOXIDE 25 mmol/L (22-30); CHLORIDE 107 mmol/L (98-107); GLUCOSE 100 mg/dL (75-110); POTASSIUM 4.5 mmol/L (3.6-5.0); SODIUM 141.7 mmol/L (137-145); TOTAL PROTEIN 7.1 g/dL (6.3-8.2)
--- NOTE | 2019-01-12 16:06 | ER Document Report ---
ED General - General Chief Complaint: Post Surgical Bleeding Stated Complaint: POST OP PROBLEMS Time Seen by Provider: 01/12/19 14:37 Primary Care Provider: JAVED FLORES PA [Primary Care Provider] - Follow up as needed Notes: Patient is a 83-year-old female with hidradenitis suppurative that presents to the emergency department for chief complaint of drainage from prior I&D wound. Patient states that November 03, she had an I&D of a perianal abscess, and she was seen in wound clinic and was healing up well, and then last night, she noticed pus drainage and bleeding from it, and continued through this morning so she decided to come to the emergency department. It was healing well she is not understanding why this happened. She denies having fevers, chills, states that her blood sugars have been slightly up recently, she is on a pump with continuous blood glucose monitoring for type 1 diabetes. She is on Humira, and gives herself a subcutaneous injection every Sunday, her last one was this most recent Sunday. She denies any nausea, vomiting, abdominal pain, diarrhea, dysuria hematuria. Denies any other symptoms currently. Currently rates her pain as a 3 out of 10 describes it as an ache where the area of the abscess is located. Past Medical History: Hidradenitis suppurativa, type 1 diabetes mellitus, GERD, hypertension, hyperlipidemia, migraines Past Surgical History: I&D Social History: Denies tobacco, alcohol or drug use. Family History: Reviewed and noncontributory for presenting illness Allergies: Reviewed, see documented allergy list. REVIEW OF SYSTEMS: Other than noted above, the 12 point review of systems was reviewed with the patient and were negative, all pertinent findings are included in the HPI. PHYSICAL EXAMINATION: Vital signs reviewed, nursing noted reviewed. GENERAL: Well-appearing, well-nourished and in no acute distress. HEAD: Atraumatic, normocephalic. EYES: Eyes appear normal, extraocular movements intact, sclera anicteric, conjunctiva are normal. ENT: nares patent, oropharynx clear without exudates. Moist mucous membranes. NECK: Normal range of motion, supple without lymphadenopathy LUNGS: Breath sounds clear to auscultation bilaterally and equal. No wheezes rales or rhonchi. HEART: Regular rate and rhythm without murmurs ABDOMEN: Soft, nontender, normoactive bowel sounds. No rebound, guarding, or rigidity. No masses appreciated. EXTREMITIES: Nontender, good range of motion, no pitting or edema. External anal exam: Performed with female still pump operator in the room, there is a 1- 1/2 cm surgical wound, that does probe deep, with no apparent fistula tract, no active bleeding, there is scant pus drainage. No other wounds or abscesses appreciated. NEUROLOGICAL: No focal neurological deficits. Moves all extremities spontaneously Motor and sensory grossly intact on exam. PSYCH: Normal mood, normal affect. SKIN: Warm, Dry, normal turgor, no rashes or lesions noted on exposed skin TRAVEL OUTSIDE OF THE [place] IN LAST 30 DAYS: No - Related Data Allergies/Adverse Reactions: codeine [Codeine] Allergy (Verified 01/12/19 14:25) acetaminophen [From Tylenol] Adverse Reaction (Verified 01/12/19 14:25) Past Medical History - Social History Smoking Status: Current Every Day Smoker Family History: Reviewed & Not Pertinent Patient has suicidal ideation: No Patient has homicidal ideation: No - Past Medical History Cardiac Medical History: Reports: Hx Hypercholesterolemia Neurological Medical History: Reports: Hx Migraine Endocrine Medical History: Reports: Hx Diabetes Mellitus Type 1 Renal/ Medical History: Denies: Hx Peritoneal Dialysis Musculoskeletal Medical History: Reports Hx Musculoskeletal Deformity, Reports Hx Musculoskeletal Trauma Skin Medical History: Reports Hx Cellulitis, Denies Hx MRSA Past Surgical History: Reports: Hx Appendectomy, Hx Section, Hx Hysterectomy, Hx Orthopedic Surgery - bilateral hands, carpal tunnel, left shoulder repair, Hx Tonsillectomy - Immunizations Hx Diphtheria, Pertussis, Tetanus Vaccination: Yes Physical Exam - Vital signs Vitals: Temp Pulse Resp BP Pulse Ox 98 F 103 H 18 139/84 H 100 01/12/19 14:28 01/12/19 14:28 01/12/19 14:28 01/12/19 14:28 01/12/19 14:28 Course - Re-evaluation Re-evalutation: Patient seen and examined vital signs reviewed. Laboratory data and/or imaging were ordered as appropriate for the patient's presenting symptoms and complaint, with consideration of any critical or life threatening conditions that may be associated with their obtained history and exam as noted above. Patient was treated with irrigation of the wound PROCEDURE: Surgical wound debridement: Risks and benefits described to the patient, patient understood and agreed to proceed, the wound probed not deep tracts were noted, then was irrigated with saline, Almaz, there is scant purulence, which was irrigated out. The wound was not packed, left open, and patient was discharged on antibiotics. Results were reviewed when available and demonstrated unremarkable blood work, I did discuss his case with the surgeon, that does see the patient, recommended antibiotics, irrigation of the wound, and follow-up. No acute surgical intervention at this time. The patient was re-evaluated and was stable Evaluation was most consistent with chronic surgical wound, debrided in the emergency department Results were discussed with the patient at this point, after careful consideration I feel that that patient can be discharged from the emergency department, the patient was educated treatments and reasons to return to the emergency department based on their presumed diagnosis as noted above, they were advised to followup with a primary care physician in 2-3 days. Patient was agreeable to plan of care. *Note is created using voice recognition software and may contain spelling, syntax or grammatical errors. Laboratory 01/12/19 01/12/19 14:49 14:49 WBC 6.8 RBC 4.76 Hgb 14.7 Hct 44.3 MCV 93 MCH 30.8 MCHC 33.2 RDW 14.9 H Plt Count 360 Seg Neutrophils % 49.0 Lymphocytes % 41.0 Monocytes % 7.4 Eosinophils % 1.6 Basophils % 1.0 Absolute Neutrophils 3.3 Absolute Lymphocytes 2.8 Absolute Monocytes 0.5 Absolute Eosinophils 0.1 Absolute Basophils 0.1 Sodium 141.7 Potassium 4.5 Chloride 107 Carbon Dioxide 25 Anion Gap 10 BUN 14 Creatinine 0.92 Est GFR ( Amer) > 60 Est GFR (Non-Af Amer) > 60 Glucose 100 Calcium 9.7 Total Bilirubin 0.7 Direct Bilirubin 0.3 Neonat Total Bilirubin Not Reportable Neonat Direct Bilirubin Not Reportable Neonat Indirect Bili Not Reportable AST 17 ALT 17 Alkaline Phosphatase 74 Total Protein 7.1 Albumin 3.9 - Vital Signs Vital signs: Temp Pulse Resp BP Pulse Ox 98 F 103 H 18 139/84 H 100 01/12/19 14:28 01/12/19 14:28 01/12/19 14:28 01/12/19 14:28 01/12/19 14:28 - Laboratory Result Diagrams: 01/12/19 14:49 01/12/19 14:49 Laboratory results interpreted by me: 01/12/19 14:49 RDW 14.9 H Discharge - Discharge Clinical Impression: Hidradenitis suppurativa, Perineal abscess Condition: Stable Disposition: HOME, SELF-CARE Instructions: Abscess ([facility]) Additional Instructions: Please complete the entire course of antibiotics as prescribed, recommend using a barrier cream or ointment such as Vaseline, to prevent contamination. If you have any further concerns he can follow-up with the wound clinic, or with Dr. Mary. Prescriptions: Amox Tr/Potassium Clavulanate [Augmentin 875-125 Tablet] 1 tab PO BID 7 Days #14 tablet Metronidazole [Flagyl 500 mg Tablet] 500 mg PO Q8H #21 tablet Referrals: JAVED FLORES PA [Primary Care Provider] - Follow up as needed VICKY MARY MD [ACTIVE STAFF] - Follow up in 3-5 days
[2019-01-12 16:54] VITALS: BP 109/68
== END 2019-01-12 17:33 | disposition home or self-care (01) ==
LOC: ER 14:24
DX: K61.0 Anal abscess (principal); L73.2 Hidradenitis suppurativa; Z48.817 Encounter for surgical aftercare following surgery on the skin and subcutaneous tissue; E10.9 Type 1 diabetes mellitus without complications; I10 Essential (primary) hypertension; F17.200 Nicotine dependence, unspecified, uncomplicated; Z96.41 Presence of insulin pump (external) (internal); Z88.5 Allergy status to narcotic agent
CPT/HCPCS: 36415; 80053; 85025; 99283

== ENCOUNTER 2019-01-17 22:31 | Emergency (ER) | payer BC ==
[2019-01-18] MEDS ORDERED: MORPHINE SULFATE 10 MG/ML INJ IM ONE (00:05)
[2019-01-18] MEDS ORDERED: PROMETHAZINE HCL 25 MG TABLET PO ONE (00:06)
[2019-01-18] MEDS ORDERED: LIDOCAINE 1%/EPINEPHRINE INJ 20 ML VIAL INJ ONE (00:07)
--- NOTE | 2019-01-18 00:11 | ER Document Report ---
ED General - General Chief Complaint: Abscess Stated Complaint: SKIN ISSUE Time Seen by Provider: 01/17/19 23:52 Primary Care Provider: JAVED FLORES PA [Primary Care Provider] - Follow up as needed Mode of Arrival: Ambulatory Information source: Patient TRAVEL OUTSIDE OF THE [place] IN LAST 30 DAYS: No - HPI Patient complains to provider of: Hidradenitis suppurativa lesion right groin Onset: Other - Worse for the past 2 to 3 days Onset/Duration: Gradual Quality of pain: Sharp Severity: Severe Pain Level: 4 Associated symptoms: denies: Chills, Fever Exacerbated by: Denies Relieved by: Denies Similar symptoms previously: No Recently seen / treated by doctor: No Notes: 53-year-old female coming in today with a hidradenitis lesion in her right groin. No fevers or chills. She is on Humira, but this does not seem to be helping. She is being referred by her [facility] [place] [facility] up to [place] to have this further evaluated. - Related Data Allergies/Adverse Reactions: codeine [Codeine] Allergy (Verified 01/12/19 14:25) acetaminophen [From Tylenol] Adverse Reaction (Verified 01/12/19 14:25) Past Medical History - General Information source: Patient - Social History Smoking Status: Smoker,Current Status Unk Family History: Reviewed & Not Pertinent - Past Medical History Cardiac Medical History: Reports: Hx Hypercholesterolemia Neurological Medical History: Reports: Hx Migraine Endocrine Medical History: Reports: Hx Diabetes Mellitus Type 1 Renal/ Medical History: Denies: Hx Peritoneal Dialysis Musculoskeletal Medical History: Reports Hx Musculoskeletal Deformity, Reports Hx Musculoskeletal Trauma Skin Medical History: Reports Hx Cellulitis, Denies Hx MRSA Past Surgical History: Reports: Hx Appendectomy, Hx Section, Hx Hysterectomy, Hx Orthopedic Surgery - bilateral hands, carpal tunnel, left shoulder repair, Hx Tonsillectomy - Immunizations Hx Diphtheria, Pertussis, Tetanus Vaccination: Yes Review of Systems - Review of Systems Notes: Constitutional: No fevers. No chills. EENT: No eye redness. No eye pain. No ear pain. No sore throat. Cardiovascular: No chest pain. No palpitations. Respiratory: No cough. No shortness of breath. No respiratory distress. Gastrointestinal: No abdominal pain. No nausea, vomiting, or diarrhea. Genitourinary: Atraumatic. No lesions. No pain. No discharge. Musculoskeletal: Atraumatic. No swelling. No deformities. Skin: Abscess right groin Lymphatic: No swollen lymph nodes. Neurologic: No headache. No syncope. Psychiatric: No suicidal or homicidal ideation. Physical Exam - Vital signs Vitals: Temp Pulse Resp BP Pulse Ox 98.0 F 90 16 124/70 98 01/17/19 22:58 01/17/19 22:58 01/17/19 22:58 01/17/19 22:58 01/17/19 22:58 - Notes Notes: General: Well-developed, well-nourished. In no acute distress. Non-toxic appearing. Cardiac: Well-perfused. Regular rate and rhythm. No murmurs, rubs, or gallops. Pulmonary: No respiratory distress. No cyanosis. Bilateral lung fiels are clear to auscultation. Abdominal: Non-distended. Non-rigid. Bowels sounds are present in all four quadrants. No guarding or rebound. HEENT: Head is atraumatic. Conjunctivae not reddened. No tearing. PERRL. EOMI. Orbits atraumatic. No periorbital swelling or erythema. Oropharynx is without erythema, swelling, or exudates. Neck: Supple. No adenopathy. No meningismus. Dermatologic: Chaperoned by DAVID Olmos Chest: Atraumatic. No chest wall tenderness to palpation. Musculoskeletal: Moves all extremities well. No range of motion deficits. no muscular or joint tenderness. No paraspinal muscle tenderness. no midline spinal tenderness or step-off. Genitourinary: Examination deferred Neurologic: No gross neurologic deficits. Psychiatric: Normal mood. Course - Re-evaluation Re-evalutation: 01/18/19 01:21 Incision and drainage is complete. Tolerated well. Cultures collected. Patient is presently taking Augmentin and Flagyl which seems to be the appropriate cocktail to help her and most of her flareups. We will write a prescription for some Vicoprofen for pain. She can follow-up with her [place] [facility] [place] [facility] in a couple of days. - Vital Signs Vital signs: Temp Pulse Resp BP Pulse Ox 98.0 F 90 16 124/70 98 01/17/19 22:58 01/17/19 22:58 01/17/19 22:58 01/17/19 22:58 01/17/19 22:58 Procedures - Incision and Drainage right groin abscess Time completed: 01:24 Type: Simple Anesthetic type: 1% Lidocaine w/epi mL's of anesthetic: 4 Blade size: 11 I&D procedure: Betadine prep applied Incision Method: Incision made by scalpel Amount/type of drainage: 3 ml yesica pus Notes: 01/18/19 01:24 Tolerated well Discharge - Discharge Clinical Impression: Labial abscess, Hidradenitis suppurativa Condition: Good Disposition: HOME, SELF-CARE Instructions: Post Incision and Drainage Additional Instructions: Vicoprofen as needed for severe pain. Continue taking Augmentin and Flagyl as these seem to be the appropriate antibiotics for your abscesses. Prescriptions: Hydrocodone/Ibuprofen [Hydrocodone-Ibuprofen 7.5-200] 1 each PO Q6H #10 tablet Referrals: JAVED FLORES PA [Primary Care Provider] - Follow up as needed
[2019-01-18] MEDS ORDERED: OXYCODONE HCL IR 5 MG TABLET PO ONE (01:46)
[2019-01-18 02:01] VITALS: BP 122/78
== END 2019-01-18 02:02 | disposition home or self-care (01) ==
LOC: ER 22:31
DX: L73.2 Hidradenitis suppurativa (principal); N76.4 Abscess of vulva; E78.00 Pure hypercholesterolemia, unspecified; E10.9 Type 1 diabetes mellitus without complications; Z86.14 Personal history of Methicillin resistant Staphylococcus aureus infection; Z88.6 Allergy status to analgesic agent; Z90.710 Acquired absence of both cervix and uterus
CPT/HCPCS: 99283; 96372; 87070; 87205; 87077; 87186; 56405; A6266; J3490; J2270

== ENCOUNTER 2019-03-06 12:34 | Emergency (ER) | payer BC ==
[2019-03-06 12:41] VITALS: BP 96/71
--- NOTE | 2019-03-06 12:54 | ER Document Report ---
ED Medical Screen (RME) - General Chief Complaint: Abscess Stated Complaint: ABSCESS Time Seen by Provider: 03/06/19 12:53 Primary Care Provider: JAVED FLORES PA [Primary Care Provider] - Follow up as needed Mode of Arrival: Ambulatory Information source: Patient Notes: 53-year-old female presented to ED for an abscess to the right groin. She states she also has a bleeding healing abscess to the gluteal fold. She states she has hydradenitis and frequently gets these abscesses and cysts. She states she has been cut diced and sliced for years until they finally diagnosed her. Patient is alert oriented respirations regular and unlabored speaking in full sentences. She states it hurts to move her to sit certain ways. I have greeted and performed a rapid initial assessment of this patient. A comprehensive ED assessment and evaluation of the patient, analysis of test results and completion of medical decision making process will be conducted by an additional ED providers. Dictation of this chart was performed using voice recognition software; therefore, there may be some unintended grammatical errors. TRAVEL OUTSIDE OF THE [place] IN LAST 30 DAYS: No - Related Data Allergies/Adverse Reactions: codeine [Codeine] Allergy (Verified 03/06/19 12:35) acetaminophen [From Tylenol] Adverse Reaction (Verified 03/06/19 12:35) Past Medical History - Social History Chew tobacco use (# tins/day): No Frequency of alcohol use: Occasional Drug Abuse: None - Past Medical History Cardiac Medical History: Reports: Hx Hypercholesterolemia Neurological Medical History: Reports: Hx Migraine Endocrine Medical History: Reports: Hx Diabetes Mellitus Type 1 Renal/ Medical History: Denies: Hx Peritoneal Dialysis Musculoskeltal Medical History: Reports Hx Musculoskeletal Deformity, Reports Hx Musculoskeletal Trauma Skin Medical History: Reports Hx Cellulitis, Denies Hx MRSA Past Surgical History: Reports: Hx Appendectomy, Hx Section, Hx Hysterectomy, Hx Orthopedic Surgery - bilateral hands, carpal tunnel, left shoulder repair, Hx Tonsillectomy - Immunizations Hx Diphtheria, Pertussis, Tetanus Vaccination: Yes Physical Exam - Vital signs Vitals: Temp Pulse Resp BP Pulse Ox 98.2 F 102 H 18 96/71 L 98 03/06/19 12:40 03/06/19 12:40 03/06/19 12:40 03/06/19 12:40 03/06/19 12:40 Course - Vital Signs Vital signs: Temp Pulse Resp BP Pulse Ox 98.2 F 102 H 18 96/71 L 98 03/06/19 12:40 03/06/19 12:40 03/06/19 12:40 03/06/19 12:40 03/06/19 12:40 Doctor's Discharge - Discharge Referrals: JAVED FLORES PA [Primary Care Provider] - Follow up as needed
--- NOTE | 2019-03-06 15:02 | ER Document Report ---
ED General - General Chief Complaint: Abscess Stated Complaint: ABSCESS Time Seen by Provider: 03/06/19 12:53 Primary Care Provider: JAVED FLORES PA [Primary Care Provider] - Follow up as needed Mode of Arrival: Ambulatory Notes: 52-year-old female with hidradenitis suppurativa on Humira presents for outbreak in the left inguinal area just posteroinferior to the left external labia. area. She states symptoms started about 3 to 4 weeks ago and started small but it has grown over that time and she is concerned that there is venous involvement. She states she cannot sit comfortably at work and has to sit on one of her gluteal muscles. She complains of acute pain. She denies any fevers or chills, nausea or vomiting, shortness of breath or chest pain. She states she had a recent br eakout in between her breasts that was diagnosed as a folliculitis. She has no other complaints TRAVEL OUTSIDE OF THE [place] IN LAST 30 DAYS: No - Related Data Allergies/Adverse Reactions: codeine [Codeine] Allergy (Verified 03/06/19 12:35) acetaminophen [From Tylenol] Adverse Reaction (Verified 03/06/19 12:35) Past Medical History - General Information source: Patient - Social History Smoking Status: Never Smoker Chew tobacco use (# tins/day): No Frequency of alcohol use: Occasional Drug Abuse: None Family History: Reviewed & Not Pertinent Patient has suicidal ideation: No Patient has homicidal ideation: No - Past Medical History Cardiac Medical History: Reports: Hx Hypercholesterolemia Neurological Medical History: Reports: Hx Migraine Endocrine Medical History: Reports: Hx Diabetes Mellitus Type 1 Renal/ Medical History: Denies: Hx Peritoneal Dialysis Musculoskeletal Medical History: Reports Hx Musculoskeletal Deformity, Reports Hx Musculoskeletal Trauma Skin Medical History: Reports Hx Cellulitis, Denies Hx MRSA Past Surgical History: Reports: Hx Appendectomy, Hx Section, Hx Hysterectomy, Hx Orthopedic Surgery - bilateral hands, carpal tunnel, left shoulder repair, Hx Tonsillectomy - Immunizations Hx Diphtheria, Pertussis, Tetanus Vaccination: Yes Review of Systems - Review of Systems Constitutional: See HPI EENT: No symptoms reported Cardiovascular: See HPI Respiratory: See HPI Gastrointestinal: No symptoms reported Genitourinary: No symptoms reported Female Genitourinary: No symptoms reported Musculoskeletal: No symptoms reported Skin: See HPI Hematologic/Lymphatic: No symptoms reported Neurological/Psychological: No symptoms reported Physical Exam - Vital signs Vitals: Temp Pulse Resp BP Pulse Ox 98.2 F 102 H 18 96/71 L 98 03/06/19 12:40 03/06/19 12:40 03/06/19 12:40 03/06/19 12:40 03/06/19 12:40 - Notes Notes: PHYSICAL EXAMINATION: Reviewed vital signs and charting by RN GENERAL: Alert, interacts well. No acute distress. HEAD: Normocephalic, atraumatic. EYES: Pupils equal and round. Extraocular movements intact. ENT: Oral mucosa moist, tongue midline. NECK: Full range of motion. Trachea midline. EXTREMITIES: Moves all 4 extremities spontaneously. No edema, No cyanosis. PSYCH: Normal affect, normal mood. SKIN: Warm, dry, normal turgor. Abscess located in the left inguinal area just lateral to the labia very tender to palpation and indurated. Course - Re-evaluation Re-evalutation: 03/06/19 15:36 Presentation consistent with an abscess secondary to hidradenitis suppurativa. I called Dr. Basurto, surgical list who is going to come to the bedside and I will assist him. 03/06/19 16:[address] Basurto along with DAVID Fall and he performed an incision and drainage of the abscess. Patient tolerated procedure well. Minimal bleeding. Plan is to have her follow-up in the surgical clinic with Dr. Basurto or Dr. Mary. Stable for discharge 03/06/19 16:11 - Vital Signs Vital signs: Temp Pulse Resp BP Pulse Ox 98.2 F 102 H 18 96/71 L 98 03/06/19 12:40 03/06/19 12:40 03/06/19 12:40 03/06/19 12:40 03/06/19 12:40 Discharge - Discharge Clinical Impression: Abscess, Hidradenitis suppurativa Condition: Good Disposition: HOME, SELF-CARE Additional Instructions: You were seen for an abscess that required drainage. Please clean this area with soap and water twice daily and apply a topical antibiotic. Dress the area after each cleaning. Please return if you develop fever, vomiting, the pain at the site worsens, you notice spreading redness from the area, or you have any other symptoms that are concerning to you. Referrals: JAVED FLORES PA [Primary Care Provider] - Follow up as needed
[2019-03-06] MEDS ORDERED: LIDOCAINE 1% INJ (10 MG/ML) 10 ML MDV INJ ONE (15:40)
[2019-03-06] MEDS ORDERED: LIDOCAINE 1%/EPINEPHRINE INJ 20 ML VIAL ONE (15:47)
[2019-03-06] MEDS ORDERED: HYDROCODONE/ACETAMINOPHEN 5-325 MG (6 TAB/ER DISP) PO PRN (16:10)
--- NOTE | 2019-03-06 18:01 | PDOC CONSULTATION ---
Consultation Consult Date: 03/06/19 Provider Consulted: ANTONI FERRELL Consult reason:: hidradenitis History of Present Illness Admission Date/PCP: MATTIE MANE History of Present Illness: CIPRIANO FLORES is a 53 year old f with hidradenitis suppurativa on Humira presents for outbreak in the left inguinal area just posteroinferior to the left external labia. area. She states symptoms started about 3 to 4 weeks ago and started small but it has grown over that time and she is concerned that there is venous involvement. She states she cannot sit comfortably at work and has to sit on one of her gluteal muscles. She complains of acute pain. She denies any fevers or chills, nausea or vomiting, shortness of breath or chest pain. She states she had a recent breakout in between her breasts that was diagnosed as a folliculitis. She has no other complaints TRAVEL OUTSIDE OF THE [place] IN LAST 30 DAYS: No Past Medical History Cardiac Medical History: Reports: Hyperlipidema Neurological Medical History: Reports: Migraine Endocrine Medical History: Reports: Diabetes Mellitus Type 1 Past Surgical History Past Surgical History: Reports: Appendectomy, Section, Hysterectomy, Orthopedic Surgery - bilateral hands, carpal tunnel, left shoulder repair, Tonsillectomy Social History Smoking Status: Never Smoker Family History Family History: Reviewed & Not Pertinent Parental Family History Reviewed: No Children Family History Reviewed: NA Sibling(s) Family History Reviewed.: NA Medication/Allergy Home Medications: Lisinopril 20 mg PO DAILY 11/03/18 Pantoprazole Sodium 40 mg PO DAILY 11/03/18 Rosuvastatin Calcium [Crestor 20 mg Tablet] 20 mg DAILY 11/03/18 Topiramate [Topamax] 150 mg PO DAILY 11/03/[address]ox Tr/Potassium Clavulanate [Augmentin 875-125 Tablet] 1 tab PO BID 7 Days #14 tablet 01/12/19 Metronidazole [Flagyl 500 mg Tablet] 500 mg PO Q8H #21 tablet 01/12/19 Hydrocodone/Ibuprofen [Hydrocodone-Ibuprofen 7.5-200] 1 each PO Q6H #10 tablet 01/18/19 Allergies/Adverse Reactions: codeine [Codeine] Allergy (Verified 03/06/19 12:35) acetaminophen [From Tylenol] Adverse Reaction (Verified 03/06/19 12:35) Review of Systems Constitutional: PRESENT: weakness Eyes: ABSENT: visual disturbances Ears: ABSENT: hearing changes Nose, Mouth, and Throat: ABSENT: as per HPI, headache(s), mouth pain, sore throat, vertigo, other Breasts: ABSENT: as per HPI, other Cardiovascular: ABSENT: as per HPI, chest pain, dyspnea on exertion, edema, orthropnea, palpitations, other Respiratory: ABSENT: as per HPI, cough, dyspnea, hemoptysis, sputum, other Gastrointestinal: ABSENT: as per HPI, abdominal pain, bloating, coffee ground emesis, constipation, diarrhea, dysphagia, heartburn, hematemesis, hematochezia, melena, nausea, vomiting, other Genitourinary: ABSENT: as per HPI, difficulty urinating, dysuria, hematuria, nocturia, other Musculoskeletal: ABSENT: as per HPI, back pain, deformity, joint swelling, muscle weakness, other Integumentary: PRESENT: as per HPI Neurological: ABSENT: as per HPI, abnormal gait, abnormal movements, abnormal speech, confusion, convulsions, dizziness, focal weakness, frequent falls, lack of coordination, memory loss, numbness, paresthesias, restless legs, syncope, tingling, tremor(s), vertigo, weakness, other Hematologic/Lymphatic: ABSENT: as per HPI, easy bleeding, easy bruising, lymphadenopathy, other Physical Exam Vital Signs: Temp Pulse Resp BP Pulse Ox 98.2 F 102 H 18 96/71 L 98 03/06/19 12:40 03/06/19 12:40 03/06/19 12:40 03/06/19 12:40 03/06/19 12:40 Intake & Output 03/05/19 03/06/19 03/07/19 06:59 06:59 06:59 Weight 71.2 kg General appearance: PRESENT: mild distress Head exam: PRESENT: normocephalic Eye exam: PRESENT: EOMI Ear exam: PRESENT: normal external ear exam Mouth exam: PRESENT: moist Neck exam: PRESENT: full ROM Respiratory exam: PRESENT: clear to auscultation kuldip Cardiovascular exam: PRESENT: RRR Pulses: PRESENT: +1 pedal pulses bilateral, +2 pedal pulses bilateral GI/Abdominal exam: PRESENT: soft Rectal exam: PRESENT: deferred Extremities exam: PRESENT: other - 3cm area of swelling and erythema with sl fluctuant swelling left labia Psychiatric exam: PRESENT: appropriate affect Skin exam: PRESENT: dry Assessment & Plan - Plan Summary Plan Summary: left labial abscess plan on bedside incision and drainage risks benfits discussd with pt including bleeding infection, worsening abscess pain, recurrence. pt understnads and agrees to proceed.
--- NOTE | 2019-03-06 18:35 | OPERATIVE REPORT E ---
Operative Report NAME: CIPRIANO FLORES : 1965 AGE: 53Y DATE OF SURGERY: 03/06/2019 ROOM: PREOPERATIVE DIAGNOSIS: HIDRADENITIS SUPPURATIVA, LEFT LABIAL ABSCESS. POSTOPERATIVE DIAGNOSIS: HIDRADENITIS SUPPURATIVA, LEFT LABIAL ABSCESS. OPERATION: Incision and drainage. SURGEON: ANTONI FERRELL M.D. INDICATIONS FOR PROCEDURE: This is a 53-year-old female who presented to the emergency room with complaints of swelling in the left labia. She has known hidradenitis suppurativa and noted this swelling for the last 2 to 3 weeks, which has gotten worse today. On physical examination, she was noted to have a swollen left labia with a fluctuant abscess. PROCEDURE: After appropriate timeout and site verification, the left perineum was prepped and draped in the usual sterile fashion. After adequate prep and drape and site verification, the left labia was anesthetized with 1% lidocaine with epinephrine. Using a 15 blade, a longitudinal incision was made directly over the abscess, approximately 3 cm long. Dissection through subcutaneous tissue with the knife was then accomplished and it was spread, and approximately 3 mL of pus were drained. The loculations were broken up with a Betzy clamp and then the abscess cavity was packed with an Iodoform-impregnated strip of gauze, which completed the procedure. It was dressed with a sterile dressing. The patient was given instructions to remove the gauze herself tomorrow while taking a sitz bath with Epsom salts. She will follow up in the surgery clinic and/or wound clinic next week. She will be given oral antibiotics by the emergency room physician. DICTATING PHYSICIAN: ANTONI FERRELL M.D. [id number] PHY#: [id number] ID: [id number] JOB#: [id number] ACCT: [id number] cc:ANTONI FERRELL M.D. >
== END 2019-03-06 17:01 | disposition home or self-care (01) ==
LOC: ER 12:34
DX: L73.2 Hidradenitis suppurativa (principal); N76.4 Abscess of vulva; E78.00 Pure hypercholesterolemia, unspecified; E10.9 Type 1 diabetes mellitus without complications; Z86.14 Personal history of Methicillin resistant Staphylococcus aureus infection; Z90.710 Acquired absence of both cervix and uterus; Z88.6 Allergy status to analgesic agent
CPT/HCPCS: 99283; 56405; J3490

== ENCOUNTER 2019-04-05 18:59 | Emergency (ER) | payer BC ==
[2019-04-05 19:08] VITALS: BP 125/65
[2019-04-05] MEDS ORDERED: OXYCODONE-ACETAMINOPHEN 5-325 MG TABLET PO ONE (19:56)
--- NOTE | 2019-04-05 19:59 | ER Document Report ---
ED Medical Screen (RME) - General Chief Complaint: Abscess Stated Complaint: CYST Time Seen by Provider: 04/05/19 19:47 Primary Care Provider: LON MEDINA MD [Primary Care Provider] - Follow up as needed Notes: This 53-year-old female presents emergency department with complaints of abscess to her left labia. Reports been there for approximately 2 weeks and is oozing. Patient also reports she is been taking Accutane so she is very drying in the discharge is very thick. Patient has a history of hydradenitis autoimmune disorder. She has been seen by a link trainer maintenance man. She denies fever vomiting diarrhea. She complains of severe pain whether she is sitting or standing. I have greeted and performed a rapid initial assessment of this patient. A comprehensive ED assessment and evaluation of the patient, analysis of test results and completion of the medical decision making process will be conducted by additional ED providers. Dictation of this chart was performed using voice recognition software; there fore, there may be some unintended grammatical errors. TRAVEL OUTSIDE OF THE [place] IN LAST 30 DAYS: No - Related Data Allergies/Adverse Reactions: codeine [Codeine] Allergy (Verified 04/05/19 19:00) Past Medical History - Past Medical History Cardiac Medical History: Reports: Hx Hypercholesterolemia Neurological Medical History: Reports: Hx Migraine Endocrine Medical History: Reports: Hx Diabetes Mellitus Type 1 Renal/ Medical History: Denies: Hx Peritoneal Dialysis Musculoskeltal Medical History: Reports Hx Musculoskeletal Deformity, Reports Hx Musculoskeletal Trauma Skin Medical History: Reports Hx Cellulitis, Denies Hx MRSA Past Surgical History: Reports: Hx Appendectomy, Hx Section, Hx Hys terectomy, Hx Orthopedic Surgery - bilateral hands, carpal tunnel, left shoulder repair, Hx Tonsillectomy - Immunizations Hx Diphtheria, Pertussis, Tetanus Vaccination: Yes Physical Exam - Vital signs Vitals: Temp Pulse Resp BP Pulse Ox 98.4 F 91 16 125/65 98 04/05/19 19:07 04/05/19 19:07 04/05/19 19:07 04/05/19 19:07 04/05/19 19:07 Course - Vital Signs Vital signs: Temp Pulse Resp BP Pulse Ox 98.4 F 91 16 125/65 98 04/05/19 19:07 04/05/19 19:07 04/05/19 19:07 04/05/19 19:07 04/05/19 19:07 Doctor's Discharge - Discharge Referrals: LON MEDINA MD [Primary Care Provider] - Follow up as needed
[2019-04-06] MEDS ORDERED: LIDOCAINE 1%/EPINEPHRINE INJ 20 ML VIAL INJ ONE (00:29)
[2019-04-06] MEDS ORDERED: LORAZEPAM 1 MG TABLET PO ONE (01:00)
[2019-04-06] MEDS ORDERED: HYDROMORPHONE HCL INJ/PF 2 MG/ML AMPULE EPI ONE (01:46)
[2019-04-06] MEDS ORDERED: CLINDAMYCIN HCL 150 MG CAPSULE PO ONE (03:18)
[2019-04-06] MEDS ORDERED: HYDROCODONE/ACETAMINOPHEN 5-325 MG (6 TAB/ER DISP) PO PRN (03:18)
[2019-04-06] MEDS ORDERED: FLUCONAZOLE 100 MG TABLET PO ONE (03:18)
--- NOTE | 2019-04-06 03:21 | ER Document Report ---
Addendum entered and electronically signed by WALT YORK FNP 04/06/19 12:52: Course - Re-evaluation Re-evalutation: 04/06/19 12:52 [facility] pharmacy called to clarify the clindamycin order. Since the prescription was typed out to take 2 tablets every 4 hours, I have updated the quantity to 84. - Vital Signs Vital signs: Temp Pulse Resp BP Pulse Ox 98.4 F 91 16 125/65 98 04/05/19 19:07 04/05/19 19:07 04/05/19 19:07 04/05/19 19:07 04/05/19 19:07 Original Note: ED General - General Chief Complaint: Abscess Stated Complaint: CYST Time Seen by Provider: 04/05/19 19:47 Primary Care Provider: LON MEDINA MD [Primary Care Provider] - Follow up as needed Notes: Patient is a pleasant 53-year-old female presents with complaints of a possible vaginal abscess. She has had multiple abscesses in the perineal region as well as her vaginal area. She says that the one on her left labia is come about over the last few days. She is followed by patient manager. She has hidradenitis Supporitiva. She is supposed to see a subspecialist patient manager who specializes hidradenitis suppurativa in January of this coming year. She has had multiple incision and drainages multiple abscesses in the past. Her patient manager has not on Accutane. She was on Bactrim and Keflex for a while but says she eventually developed severe yeast infections. She is no longer on this. She has no other complaints at this time. No fevers. TRAVEL OUTSIDE OF THE [place] IN LAST 30 DAYS: No - Related Data Allergies/Adverse Reactions: codeine [Codeine] Allergy (Verified 04/05/19 19:00) Past Medical History - Social History Smoking Status: Never Smoker Frequency of alcohol use: None Drug Abuse: None Family History: Reviewed & Not Pertinent Patient has suicidal ideation: No Patient has homicidal ideation: No - Past Medical History Cardiac Medical History: Reports: Hx Hypercholesterolemia Neurological Medical History: Reports: Hx Migraine Endocrine Medical History: Reports: Hx Diabetes Mellitus Type 1 Renal/ Medical History: Denies: Hx Peritoneal Dialysis Musculoskeletal Medical History: Reports Hx Musculoskeletal Deformity, Reports Hx Musculoskeletal Trauma Skin Medical History: Reports Hx Cellulitis, Denies Hx MRSA Past Surgical History: Reports: Hx Appendectomy, Hx Section, Hx Hysterectomy, Hx Orthopedic Surgery - bilateral hands, carpal tunnel, left shoulder repair, Hx Tonsillectomy - Immunizations Hx Diphtheria, Pertussis, Tetanus Vaccination: Yes Review of Systems - Review of Systems Notes: My Normal Review Basic REVIEW OF SYSTEMS: CONSTITUTIONAL : Denies fever, chills, or sweats. Denies recent illness. GASTROINTESTINAL: Denies abdominal pain. FEMALE GENITOURINARY: Labial abscess SKIN: History of hidradenitis Suppurative causing recurrent skin infections. NEUROLOGICAL: Denies sensory or motor loss. ALL OTHER SYSTEMS REVIEWED AND NEGATIVE. Physical Exam - Vital signs Vitals: Temp Pulse Resp BP Pulse Ox 98.4 F 91 16 125/65 98 04/05/19 19:07 04/05/19 19:07 04/05/19 19:07 04/05/19 19:07 04/05/19 19:07 - Notes Notes: General Appearance: Well nourished, alert, cooperative, no acute distress, mild obvious discomfort. Vitals: reviewed, See vital signs table. Eyes: PERRL, EOMI, Conjuctiva clear Genitalia: Genitalia examined with Richelle female altitude chamber technician, at bedside. She has a small firm knot in the left labia on the external aspect. When she squeezes a small amount of purulent drainage comes out. No spreading erythema. Patient does have incision of her her right gluteal region just inferior to the perineum. This is from her previous abscess drain. Appears to be healing appropriately. Extremities: strength 5/5 in all extremities, good pulses in all extremities Skin: warm, dry, appropriate color Neuro: speech clear, oriented x 3, normal affect, responds appropriately to questions. Course - Re-evaluation Re-evalutation: 04/06/19 05:37 Abscess was incised and drained. I flushed with saline. I did pack it with Iodo gauze. This gave patient some relief. She looks well. I will place her on antibiotics. I encouraged her to follow-up with her patient manager this coming week. Encouraged to return here if there is recurrent swelling in her labial region, any spreading redness, she has fevers, or if she feels unwell. Patient initially did not want antibiotics she says it causes yeast infections however she is a diabetic and she did have an abscess in the genital region and therefore informed her she is at high risk for infection therefore strongly recommended antibiotics. Patient then agreed to take the antibiotics. I did give her Diflucan for prevention of yeast infection. Dictation of this chart was performed using voice recognition software; therefore, there may be some unintended grammatical errors. - Vital Signs Vital signs: Temp Pulse Resp BP Pulse Ox 98.4 F 91 16 125/65 98 04/05/19 19:07 04/05/19 19:07 04/05/19 19:07 04/05/19 19:07 04/05/19 19:07 Procedures - Incision and Drainage left labia Type: Simple Anesthetic type: 1% Lidocaine w/epi mL's of anesthetic: 1 Blade size: 11 I&D procedure: Chlorprep applied Incision Method: Incision made by scalpel Amount/type of drainage: 1ml of purulent drainage Discharge - Discharge Clinical Impression: Labial abscess Condition: Good Disposition: HOME, SELF-CARE Additional Instructions: ABSCESS: You have an abscess (boil). This a pus-forming infection, usually due to staph. Some boils may be left to drain on their own, but most require lancing. From the time the tender lump first appears, it may be three or four days before the abscess is ready to deandra. Local heat and rest help at this stage of treatment. An antibiotic may prevent spread of the infection. Once the abscess is opened, packing may be placed into it. This is done so pus is not sealed inside by premature closure of the cavity. The packing will be removed at your follow-up visit or you may be advised to remove it yourself at home. Sometimes this packing must be replaced a few times during healing. The wound will heal with surprisingly little scar. Depending on the size and location of an abscess, healing can take one to four weeks. You may shower and wash the area around the incision site two or three times a day. Antibiotics may be prescribed, but are usually not necessary after an abscess has been drained. If you develop fever, chills, worsening pain, or increasing swelling in the area, call the doctor or return immediately. POST INCISION AND DRAINAGE: You have had an incision made to allow drainage of an abscess. The incision must remain open so that pus and debris can drain from the wound. If the abscess cavity is large, packing is placed. This keeps the tissues from collapsing and trapping pus inside, while the body shrinks the cavity. The packing may need to be replaced every day or two. The physician will instruct you on the packing. Keep a bulky dressing over the area. Replace it if it becomes saturated with blood or pus. Do not disturb the packing (if present). You may shower and cleanse the area with gentle soap and warm water two or three times a day. Local warmth may be soothing, and may promote faster healing. Return if you develop high fever or chills, or if you note spreading redness, increasing swelling, or increasing tenderness. ORAL NARCOTIC MEDICATION: You have been given a prescription for pain control. This medication is a narcotic. It's best taken with food, as nausea can result if taken on an empty stomach. Don't operate machinery or drive within six hours of taking this medication. Do not combine this medicine with alcohol, or with any medication which can cause sedation (such as cold tablets or sleeping pills) unless you get permission from the physician. Narcotics tend to cause constipation. If possible, drink plenty of fluids and eat a diet high in fiber and fruits. FOLLOW-UP CARE: Please follow-up with your doctor this coming week. Please return to ER immediately if you have spreading redness, increasing swelling, recurrence of abscess. I gave you a dose of Diflucan today. If you are continue to have problems with yeast infection 1 week later than you can have the repeat dose that we have prescribed. Prescriptions: RX: Clindamycin HCl [Cleocin 150 mg Capsule] 300 mg PO Q6 #56 capsule Fluconazole [Diflucan] 150 mg PO ONCE PRN #1 tablet PRN Reason: Referrals: LON MEDINA MD [Primary Care Provider] - Follow up as needed
== END 2019-04-06 03:40 | disposition home or self-care (01) ==
LOC: ER 18:59
PROC: 0W9N0ZZ Drainage of Female Perineum, Open Approach (ICD-10-PCS; principal; 2019-04-05)
DX: N76.4 Abscess of vulva (principal); E10.9 Type 1 diabetes mellitus without complications
CPT/HCPCS: 99282; 96374; 56405; A6266; J3490; J1170

== ENCOUNTER 2019-05-05 10:45 | Emergency (ER) | payer BC ==
--- NOTE | 2019-05-05 11:30 | ER Document Report ---
ED Medical Screen (RME) - General Chief Complaint: Abscess Stated Complaint: POSSIBLE ABSCESS Time Seen by Provider: 05/05/19 11:21 Primary Care Provider: LON MEDINA MD [Primary Care Provider] - Follow up as needed Notes: Patient is a 53-year-old female with a history of type 1 diabetes and hidradenitis who presents to the emergency department with a chief complaint of an abscess to the right inner buttocks. Patient states this has been present for 2 days and continues to get worse. Patient reports that it is extremely tender and there is no currently no drainage. Patient states she has had multiple abscesses in this area and has required surgical intervention in the operating room. Patient denies fever. Patient denies history of MRSA. Patient reports she feels like there is a deep track in the abscess. TRAVEL OUTSIDE OF THE [place] IN LAST 30 DAYS: No - Related Data Allergies/Adverse Reactions: codeine [Codeine] Allergy (Verified 05/05/19 10:46) Past Medical History - Social History Frequency of alcohol use: None Drug Abuse: None - Past Medical History Cardiac Medical History: Reports: Hx Hypercholesterolemia Neurological Medical History: Reports: Hx Migraine Endocrine Medical History: Reports: Hx Diabetes Mellitus Type 1 Renal/ Medical History: Denies: Hx Peritoneal Dialysis Musculoskeltal Medical History: Reports Hx Musculoskeletal Deformity, Reports Hx Musculoskeletal Trauma Skin Medical History: Reports Hx Cellulitis, Denies Hx MRSA Past Surgical History: Reports: Hx Appendectomy, Hx Section, Hx Hysterectomy, Hx Orthopedic Surgery - bilateral hands, carpal tunnel, left shoulder repair, Hx Tonsillectomy - Immunizations Hx Diphtheria, Pertussis, Tetanus Vaccination: Yes Physical Exam - Vital signs Vitals: Temp Pulse Resp BP Pulse Ox 98.5 F 109 H 18 107/69 97 05/05/19 10:58 05/05/19 10:58 05/05/19 10:58 05/05/19 10:58 05/05/19 10:58 Course - Re-evaluation Re-evalutation: 05/05/19 11:29 Patient will require examination of the buttocks in a more private area versus triage. I have greeted and performed a rapid initial assessment of this patient. A comprehensive ED assessment and evaluation of the patient, analysis of test results and completion of the medical decision making process will be conducted by additional ED providers. - Vital Signs Vital signs: Temp Pulse Resp BP Pulse Ox 98.5 F 109 H 18 107/69 97 05/05/19 10:58 05/05/19 10:58 05/05/19 10:58 05/05/19 10:58 05/05/19 10:58 Doctor's Discharge - Discharge Referrals: LON MEDINA MD [Primary Care Provider] - Follow up as needed
[2019-05-05] MEDS ORDERED: HYDROMORPHONE HCL INJ/PF 2 MG/ML AMPULE IM ONE (13:08)
[2019-05-05] MEDS ORDERED: LIDOCAINE 1%/EPINEPHRINE INJ 20 ML VIAL INJ ONE (13:09)
--- NOTE | 2019-05-05 14:32 | ER Document Report ---
ED Skin Rash/Insect Bite/Abscs - General Chief Complaint: Abscess Stated Complaint: POSSIBLE ABSCESS Time Seen by Provider: 05/05/19 11:21 Primary Care Provider: LON MEDINA MD [Primary Care Provider] - Follow up as needed Notes: Patient is a 53-year-old female with a history of type 1 diabetes and hidradenitis who presents to the emergency department with a chief complaint of an abscess to the right inner buttocks. Patient states this has been present for 2 days and continues to get worse. Patient reports that it is extremely tender and there is no currently no drainage. Patient states she has had multiple abscesses in this area and has required surgical intervention in the operating room. Patient denies fever. Patient denies history of MRSA. Patient reports she feels like there is a deep track in the abscess. Patient denies fever. Patient states she has seen multiple silver steward for her hidradenitis. States she does have an appointment with a silver steward in [place] this month. States within this last month she was placed on Accutane. States she is been taking Humira for over a year. TRAVEL OUTSIDE OF THE [place] IN LAST 30 DAYS: No - Related Data Allergies/Adverse Reactions: codeine [Codeine] Allergy (Verified 05/05/19 11:32) Past Medical History - General Information source: Patient - Social History Smoking Status: Unknown if Ever Smoked Frequency of alcohol use: None Drug Abuse: None Family History: Reviewed & Not Pertinent Patient has suicidal ideation: No Patient has homicidal ideation: No - Past Medical History Cardiac Medical History: Reports: Hx Hypercholesterolemia Neurological Medical History: Reports: Hx Migraine Endocrine Medical History: Reports: Hx Diabetes Mellitus Type 1 Renal/ Medical History: Denies: Hx Peritoneal Dialysis Musculoskeletal Medical History: Reports Hx Musculoskeletal Deformity, Reports Hx Musculoskeletal Trauma Skin Medical History: Reports Hx Cellulitis, Denies Hx MRSA Past Surgical History: Reports: Hx Appendectomy, Hx Section, Hx Hysterectomy, Hx Orthopedic Surgery - bilateral hands, carpal tunnel, left shoulder repair, Hx Tonsillectomy - Immunizations Hx Diphtheria, Pertussis, Tetanus Vaccination: Yes Review of Systems - Review of Systems Constitutional: denies: Fever EENT: No symptoms reported Cardiovascular: No symptoms reported Respiratory: No symptoms reported Gastrointestinal: No symptoms reported Genitourinary: No symptoms reported Female Genitourinary: No symptoms reported Musculoskeletal: See HPI Skin: See HPI Hematologic/Lymphatic: No symptoms reported Neurological/Psychological: No symptoms reported Physical Exam - Vital signs Vitals: Temp Pulse Resp BP Pulse Ox 98.5 F 109 H 18 107/69 97 05/05/19 10:58 05/05/19 10:58 05/05/19 10:58 05/05/19 10:58 05/05/19 10:58 - Notes Notes: GENERAL: Alert, interacts well. No acute distress. HEAD: Normocephalic, atraumatic. EYES: Pupils equal, round, and reactive to light. Extraocular movements intact. ENT: Oral mucosa moist, tongue midline. NECK: Full range of motion. Supple. Trachea midline. LUNGS: Clear to auscultation bilaterally, no wheezes, rales, or rhonchi. No respiratory distress. HEART: Regular rate and rhythm. No murmur ABDOMEN: Soft, non-tender. Non-distended. Bowel sounds present in all 4 quadrants. EXTREMITIES: Moves all 4 extremities spontaneously. No edema, normal radial and dorsalis pedis pulses bilaterally. No cyanosis. BACK: no cervical, thoracic, lumbar midline tenderness. No saddle anesthesia, normal distal neurovascular exam. NEUROLOGICAL: Alert and oriented x3. Normal speech. cranial nerves II through XII grossly intact PSYCH: Normal affect, normal mood. SKIN: Warm, dry, normal turgor. Fluctuance area that appears to come to ahead noted on the right inner buttocks. Dehisced area also noted right inner buttocks, no obvious drainage. Genitalia exam: Serena Akbar RN, internal rectal exam reveals no fluctuance, no fistula noted. Course - Re-evaluation Re-evalutation: Patient is presented to this facility multiple times for same complaint. Patient is very emotional asking "why me?" States she has been dealing with hidradenitis since she was 15 years old. Patient states she has seen silver steward locally and is going to [facility] for a specialist. Voices hydradenitis has "ruined my life." Patient initially does not want an I&D. States she would like to be placed on antibiotics with pain management. Patient voices that Percocet and Freedom typically upset her stomach. States "last time I was here they gave me a shot of something." I discussed with patient that her current abscess does appear to have a head on it and is also fluctuant. I have discussed with her potential better prognosis should this be opened and allowed to drain. Patient voices understanding and is willing to move forward with incision and drain. Incision and drain performed, patient tolerated well, see procedure note. Patient voices she typically is placed on clindamycin, states Keflex and Bactrim typically upset her stomach. I discussed placing patient on clindamycin and pain medication until her follow-up with dermatology. Patient is also requesting Diflucan as antibiotics typically give her yeast infections. Patient voices she typically does daily sitz bath's, close return precautions to include fever are discussed with patient at bedside. At this time will discharge with return precautions and follow-up recommendations. Verbal discharge instructions given a the bedside and opportunity for questions given. Medication warnings reviewed. Patient is in agreement with this plan and has verbalized understanding of return precautions and the need for primary care follow-up in the next 24-72 hours. This medical record was dictated with voice recognizing software. There may be grammatical, syntax errors that are unintended. - Vital Signs Vital signs: Temp Pulse Resp BP Pulse Ox 97.8 F 101 H 18 96/67 L 98 05/05/19 14:39 05/05/19 14:39 05/05/19 14:39 05/05/19 14:39 05/05/19 14:39 Procedures - Incision and Drainage Right buttocks Type: Simple Anesthetic type: 1% Lidocaine mL's of anesthetic: 5 Blade size: 11 I&D procedure: Betadine prep applied, Shurclens applied, Sterile dressing applied Incision Method: Incision made by scalpel Amount/type of drainage: Copious purulent Discharge - Discharge Clinical Impression: Hidradenitis suppurativa of anus, Abscess Condition: Stable Disposition: HOME, SELF-CARE Instructions: Abscess ([facility]), Post Incision and Drainage Additional Instructions: As we discussed you have been seen and treated in the emergency department for an abscess. Please make sure you are taking antibiotics and pain medication as prescribed. Please also make sure you continue to follow-up with dermatology. Please return to the emergency room should you develop a fever or for any worsening symptoms. Prescriptions: Clindamycin HCl [Cleocin 150 mg Capsule] 300 mg PO Q8 7 Days capsule Fluconazole [Diflucan] 150 mg PO ONCE PRN #2 tablet PRN Reason: Morphine Sulfate [Morphine Ir 15 Mg Tablet] 15 mg PO Q4H PRN #12 tablet PRN Reason: Referrals: LON MEDINA MD [Primary Care Provider] - Follow up as needed
[2019-05-05 14:49] VITALS: BP 96/67
== END 2019-05-05 14:49 | disposition home or self-care (01) ==
LOC: ER 10:45
PROC: 0H98XZZ Drainage of Buttock Skin, External Approach (ICD-10-PCS; principal; 2019-05-05)
DX: L73.2 Hidradenitis suppurativa (principal); L02.31 Cutaneous abscess of buttock; E10.9 Type 1 diabetes mellitus without complications
CPT/HCPCS: 96372; 99283; 10060; J3490; J1170

== ENCOUNTER 2019-07-24 08:30 | Day surgery (SDC) | payer BC ==
[~2019-07-24 08:30] MED LIST: CHONDR SU A NA/HYALUR INTRAOC KIT (SURGICARE) ONE; EPINEPHRINE INJ/PF 1 MG/1 ML AMPULE ONE; KETOROLAC TROMETHAMINE 0.45% 4 DROP/0.4 ML DROPERETTE OD PRN; LIDOCAINE 1%/PHENYLEPHRINE 1.5% 1 ML VIAL ONE
[2019-07-24] MEDS ORDERED: ONDANSETRON HCL INJ/PF 4 MG/2 ML SDV ONE ×2 (08:48→10:26)
[2019-07-24] MEDS ORDERED: FENTANYL CITRATE INJ/PF 100 MCG/2 ML AMPUL ONE ×2 (08:50→10:26)
[2019-07-24] MEDS ORDERED: MIDAZOLAM 2 MG/2 ML INJ ONE ×2 (08:50→09:46)
[2019-07-24] MEDS: TROPICAMIDE 1% OPH SOLN 15 ML OD PRN ×3 (09:10→09:30)
[2019-07-24] MEDS: CYCLOPENTOLATE 0.2%/PHENYLEPHRINE 1% OPH SOLN 2 ML OD PRN ×3 (09:10→09:30)
[2019-07-24] MEDS: TETRACAINE HCL 0.5% OPH SOLN 4 ML OD PRN ×3 (09:10→09:53)
[2019-07-24] MEDS: BESIFLOXACIN HCL 0.6% OPH SUSP 5 ML BOTTLE OD PRN ×6 (09:10→10:21)
[2019-07-24] MEDS ORDERED: TOBRAMYCIN SULFATE/DEXAMETH OPH OINTMENT 3.5 GM ONE (10:12)
[2019-07-24] MEDS: DORZOLAMIDE HCL 2%/TIMOLOL MALEAT 0.5% OPH SOLN 10 ML OD PRN ×4 (10:18→10:21)
--- NOTE | 2019-07-24 13:20 | Operative Report ---
Operative Report[facility] Operative Report: DATE OF SURGERY: 07/24/2019 PREOPERATIVE DIAGNOSIS: Cataract, right eye POSTOPERATIVE DIAGNOSIS: Cataract, right eye OPERATION: Cataract extraction with insertion of an IOL of the right eye. Intraocular Lens Model: 24.0 sn60wf Reason for surgery was difficulty seeing for reading SURGEON: Portillo Pool MD ANESTHESIA: Topical PROCEDURE: After obtaining appropriate consent, the patient's right eye was prepped and draped in a sterile fashion as well as the surgeon in the sterile manner and cataract surgery was started. First a paracentesis blade was used to make a side-port incision. Viscoelastic was used to inflate the anterior chamber. Next a 2.4 mm incision was made with a 2.4 mm blade, clear corneal temporarily. A continuous capsulorrhexis was made using a cystotome and Utrata forceps. Following this hydrodissection was carried out to make the miranda fully loose and mobile and it was rotated. Following this, a divide and conquer technique was used to phacoemulsify the miranda. The remaining cortex was removed with an irrigation/aspiration. Provisc was instilled into the capsular bag to inflate the bag. The intraocular lens was placed. The remaining viscoelastic material was removed with irrigation/aspiration. Following this, the incision was found to be watertight. Besivance and Cosopt was instilled into the eye and a protective shield was placed over the eye. The patient was reurned to the postoperative recovery in a stable condition.
== END 2019-07-24 11:12 | disposition home or self-care (01) ==
LOC: SC 08:30
PROVIDERS: ATTEND Internal Medicine
DX: H25.813 Combined forms of age-related cataract, bilateral (principal); E10.3593 Type 1 diabetes mellitus with proliferative diabetic retinopathy without macular edema, bilateral; H04.123 Dry eye syndrome of bilateral lacrimal glands; I10 Essential (primary) hypertension; E78.00 Pure hypercholesterolemia, unspecified; Z79.4 Long term (current) use of insulin; F17.210 Nicotine dependence, cigarettes, uncomplicated; Z96.41 Presence of insulin pump (external) (internal)
CPT/HCPCS: 66984; 82962; 00142; V2632; J2250; J3490 ×3; J0171; J3010; J2405; J2370; 142

== ENCOUNTER 2019-08-21 08:36 | Day surgery (SDC) | payer BC ==
[~2019-08-21 08:36] MED LIST changes: -CHONDR SU A NA/HYALUR INTRAOC KIT (SURGICARE) ONE; -EPINEPHRINE INJ/PF 1 MG/1 ML AMPULE ONE; -KETOROLAC TROMETHAMINE 0.45% 4 DROP/0.4 ML DROPERETTE OD PRN; +KETOROLAC TROMETHAMINE 0.45% 4 DROP/0.4 ML DROPERETTE OS PRN; -LIDOCAINE 1%/PHENYLEPHRINE 1.5% 1 ML VIAL ONE
[2019-08-21] MEDS: TETRACAINE HCL 0.5% OPH SOLN 4 ML OS PRN ×4 (09:49→10:24)
[2019-08-21] MEDS: TROPICAMIDE 1% OPH SOLN 15 ML OS PRN ×3 (09:49→10:12)
[2019-08-21] MEDS: CYCLOPENTOLATE 0.2%/PHENYLEPHRINE 1% OPH SOLN 2 ML OS PRN ×3 (09:49→10:12)
[2019-08-21] MEDS: BESIFLOXACIN HCL 0.6% OPH SUSP 5 ML BOTTLE OS PRN ×4 (09:49→10:46)
[2019-08-21] MEDS ORDERED: MIDAZOLAM 2 MG/2 ML INJ ONE (10:07)
[2019-08-21] MEDS ORDERED: FENTANYL CITRATE INJ/PF 100 MCG/2 ML AMPUL ONE (10:07)
[2019-08-21] MEDS: EPINEPHRINE INJ/PF 1 MG/1 ML AMPULE ONE ×2 (10:36)
[2019-08-21] MEDS: CHONDR SU A NA/HYALUR INTRAOC KIT (SURGICARE) ONE ×2 (10:36)
[2019-08-21] MEDS: LIDOCAINE 1%/PHENYLEPHRINE 1.5% 1 ML VIAL ONE ×2 (10:36)
[2019-08-21] MEDS: DORZOLAMIDE HCL 2%/TIMOLOL MALEAT 0.5% OPH SOLN 10 ML OS PRN ×2 (10:46)
--- NOTE | 2019-08-21 13:23 | Operative Report ---
Operative Report-[facility] Operative Report: DATE OF SURGERY: 08/11/2019 PREOPERATIVE DIAGNOSIS: Cataracts, left eye POSTOPERATIVE DIAGNOSIS: Cataract, left eye OPERATION: Cataract extraction with insertion of an toric IOL of the left eye. Intraocular Lens Model: [23.5 sn6AT3 @ 140] Surgery was for difficulty seeing small print SURGEON: Portillo Pool MD ANESTHESIA: Topical PROCEDURE: After obtaining appropriate consent, the patient's left eye was prepped and draped in a sterile fashion as well as the surgeon in the sterile manner and cataract surgery was started. First a paracentesis blade was used to make a side-port incision. Viscoelastic was used to inflate the anterior chamber. Next a 2.4 mm incision was made with a 2.4 mm blade, clear corneal temporarily. A continuous capsulorrhexis was made using a cystotome and Utrata forceps. Following this hydrodissection was carried out to make the lens fully loose and mobile and it was rotated 90 degrees. Following this, a divide and conquer technique was used to phacoemulsify the lens. The remaining cortex was removed with an irrigation/aspiration. Provisc was instilled into the capsular bag to inflate the bag.The intraocular lens was placed. The remaining viscoelastic material was removed with irrigation/aspiration. Following this, the incision was found to be watertight. Besivance and Cosopt was instilled into the eye and a protective shield was placed over the eye. The patient was returned to the postoperative recovery in a stable condition.
== END 2019-08-21 11:23 | disposition home or self-care (01) ==
LOC: SC 08:36
PROVIDERS: ATTEND Internal Medicine
DX: H25.812 Combined forms of age-related cataract, left eye (principal); Z96.1 Presence of intraocular lens; S05.01XD Injury of conjunctiva and corneal abrasion without foreign body, right eye, subsequent encounter; X58.XXXD Exposure to other specified factors, subsequent encounter; E11.9 Type 2 diabetes mellitus without complications; Z79.4 Long term (current) use of insulin; I10 Essential (primary) hypertension; Z79.899 Other long term (current) drug therapy; Z88.5 Allergy status to narcotic agent; F17.210 Nicotine dependence, cigarettes, uncomplicated
CPT/HCPCS: 66984; 82962; 00142; V2787; J2250; J3490 ×2; J0171; J3010; J2370; 142

== ENCOUNTER 2020-06-27 00:19 | Emergency (ER) | payer BC ==
--- NOTE | 2020-06-27 03:49 | ER Document Report ---
ED General - General Chief Complaint: Rectal Abscess Stated Complaint: HIDRADENITIS Time Seen by Provider: 06/27/20 03:48 Primary Care Provider: ARCADIO GODINEZ MD [ACTIVE STAFF] - Follow up as needed Mode of Arrival: Ambulatory Information source: Patient Notes: 54-year-old female presents with complaints of possible rectal abscess. Patient reports history of hidradenitis suppurativa. She reports she has had these type of abscesses several times. She states this 1 has been there for approximately 2 days. She is very concerned because last time she had that she had to be seen by a surgeon to have it drained in the operating room. She has not had fever, c hills or any other symptoms. She is followed by dermatology at [facility]. TRAVEL OUTSIDE OF THE [place] IN LAST 30 DAYS: No - Related Data Allergies/Adverse Reactions: codeine [Codeine] Allergy (Verified 07/18/19 10:29) ITCHING Home Medications: see medication Past Medical History - General Information source: Patient - Social History Smoking Status: Current Every Day Smoker Family History: Reviewed & Not Pertinent - Past Medical History Cardiac Medical History: Reports: Hx Hypercholesterolemia Denies: Hx Heart Attack, Hx Hypertension Pulmonary Medical History: Denies: Hx Asthma Neurological Medical History: Reports: Hx Migraine. Denies: Hx Cerebrovascular Accident, Hx Seizures Endocrine Medical History: Reports: Hx Diabetes Mellitus Type 1 Renal/ Medical History: Denies: Hx Peritoneal Dialysis GI Medical History: Denies: Hx Hepatitis, Hx Hiatal Hernia, Hx Ulcer Musculoskeletal Medical History: Reports Hx Musculoskeletal Deformity, Reports Hx Musculoskeletal Trauma Skin Medical History: Reports Hx Cellulitis, Denies Hx MRSA, Reports Other - Hid radenitis Infectious Medical History: Denies: Hx Hepatitis Past Surgical History: Reports: Hx Appendectomy, Hx Section, Hx Hysterectomy, Hx Orthopedic Surgery - bilateral hands, carpal tunnel, left shoulder repair, Hx Tonsillectomy. Denies: Hx Mastectomy, Hx Open Heart Surgery, Hx Pacemaker - Immunizations Hx Diphtheria, Pertussis, Tetanus Vaccination: Yes Review of Systems - Review of Systems Skin: See HPI -: Yes All other systems reviewed and negative Physical Exam - Vital signs Vitals: Temp Pulse Resp BP Pulse Ox 97.9 F 99 18 114/67 97 06/27/20 01:00 06/27/20 01:00 06/27/20 01:00 06/27/20 01:00 06/27/20 01:00 - Notes Notes: PHYSICAL EXAMINATION: GENERAL: Well-appearing, well-nourished and in no acute distress. HEAD: Atraumatic, normocephalic. EYES: Pupils equal round and reactive to light, extraocular movements intact, conjunctiva are normal. ENT: Nares patent, oropharynx clear without exudates. Moist mucous membranes. NECK: Normal range of motion, supple without lymphadenopathy LUNGS: Breath sounds clear to auscultation bilaterally and equal. No wheezes rales or rhonchi. HEART: Regular rate and rhythm without murmurs ABDOMEN: Soft, nontender, nondistended abdomen. No guarding, no rebound. No masses appreciated. Female : deferred Musculoskeletal: Normal range of motion, no pitting or edema. No cyanosis. NEUROLOGICAL: Cranial nerves grossly intact. Normal speech, normal gait. Normal sensory, motor exams PSYCH: Normal mood, normal affect. SKIN: Approximate 2 cm area of induration approximately 2 cm away from the rectum. Patient refuses rectal exam. There is no fluctuance to this abscess/area of concern. Course - Re-evaluation Re-evalutation: There is an area of induration without fluctuance, it is a few centimeters away from the rectum. It does not appears to be something that I can open up and drain right now. Patient further reports she would not want me draining it in the emergency department. I will place a call to surgeon to see if he can see her in the office as I do not think that she needs emergent incision and drainage. 06/27/20 08:[address] Godinez. He agrees to see patient in the office on Sunday. - Vital Signs Vital signs: Temp Pulse Resp BP Pulse Ox 98.2 F 66 16 101/56 L 99 06/27/20 08:47 06/27/20 08:47 06/27/20 08:47 06/27/20 08:47 06/27/20 08:47 - Laboratory Result Diagrams: 06/27/20 04:30 06/27/20 04:30 Laboratory results interpreted by me: 06/27/20 04:30 Chloride 110 H Glucose 120 H Discharge - Discharge Clinical Impression: Hidradenitis Condition: Stable Disposition: HOME, SELF-CARE Additional Instructions: Please follow-up with Dr. Godinez in the office. He said he will see you on Sunday. Please call their office first thing Sunday morning let them know you were in the emergency department and we contacted Dr. Godinez and he agreed to see you that day. Take antibiotics as prescribed. Continue taking pain medicine as prescribed by your pain management provider. Prescriptions: Doxycycline Hyclate [Vibramycin 100 mg Tablet] 100 mg PO BID #14 tablet Referrals: ARCADIO GODINEZ MD [ACTIVE STAFF] - Follow up as needed
[2020-06-27] MEDS ORDERED: DOXYCYCLINE HYCLATE 100 MG TABLET PO ONE (04:23)
[2020-06-27] MEDS ORDERED: HYDROCODONE/ACETAMINOPHEN 5-325 MG TABLET PO ONE (04:23)
[2020-06-27 04:44] LABS: ABSOLUTE EOSINOPHILS # (AUTO) 0.1 10^3/uL (0.0-0.6); ABSOLUTE LYMPHOCYTES (AUTO) 2.5 10^3/uL (0.5-4.7); ABSOLUTE MONOCYTES (AUTO) 0.5 10^3/uL (0.1-1.4); ABSOLUTE NEUT (AUTO) 3.6 10^3/uL (1.7-8.2); BASOPHILS % (AUTO) 0.7 % (0-2); EOSINOPHILS % (AUTO) 1.3 % (0-6); HEMATOCRIT 41.1 % (36.0-47.0); HEMOGLOBIN 14.1 g/dL (12.0-15.5); LYMPHOCYTES % (AUTO) 37.4 % (13-45); MEAN CORPUSCULAR HEMOGLOBIN 31.4 pg (27.0-33.4); MEAN CORPUSCULAR HGB CONC 34.3 g/dL (32.0-36.0); MEAN CORPUSCULAR VOLUME 92 fl (80-97); PLATELET COUNT 265 10^3/uL (150-450); RED BLOOD COUNT 4.49 10^6/uL (3.72-5.28); RED CELL DISTRIBUTION WIDTH 13.1 % (11.5-14.0); SEGMENTED NEUTROPHILS % (AUTO) 53.6 % (42-78); TOTAL CELLS COUNTED % (AUTO) 100 %; WHITE BLOOD COUNT 6.6 10^3/uL (4.0-10.5)
[2020-06-27 05:05] LABS: ANION GAP 8 (5-19); BLOOD UREA NITROGEN 13 mg/dL (7-20); CALCIUM 9.2 mg/dL (8.4-10.2); CARBON DIOXIDE 22 mmol/L (22-30); CHLORIDE 110 mmol/L (98-107); GLUCOSE 120 mg/dL (75-110)
[2020-06-27 08:49] VITALS: BP 101/56
== END 2020-06-27 08:47 | disposition home or self-care (01) ==
LOC: ER 00:19
DX: L73.2 Hidradenitis suppurativa (principal); Z88.8 Allergy status to other drugs, medicaments and biological substances; F17.200 Nicotine dependence, unspecified, uncomplicated; E10.9 Type 1 diabetes mellitus without complications
CPT/HCPCS: 36415; 80048; 84703; 85025; 99283

== ENCOUNTER 2020-06-28 12:11 | Day surgery (SDC) | payer BC ==
[~2020-06-28 12:11] MED LIST changes: -KETOROLAC TROMETHAMINE 0.45% 4 DROP/0.4 ML DROPERETTE OS PRN; +SUCCINYLCHOLINE CHLORIDE INJ 200 MG/10 ML VIAL ONE
--- NOTE | 2020-06-28 13:12 | PDOC H&P ---
History of Present Illness Admission Date/PCP: HARSHA ARCINIEGA MD Patient complains of: Perianal abscess History of Present Illness: CIPRIANO FLORES is a 54 year old female with a history of diabetes type 1. She reports a several day history of swelling, and pain in the perianal area, adjacent to the gluteal cleft. The patient has had multiple abscesses before. She has a history of hidradenitis. She reports severe pain, and will not allow an extensive examination or definitive/procedural treatment in the office. She reports that her pain is 10 out of 10. It is sharp and stabbing. Movement and palpation make it worse. Nothing makes it better. Secondary to this, the patient was sent to the hospital for definitive surgical care. Currently she denies chest pain, shortness of breath, fevers, chills, nausea, vomiting, dizziness, blurry vision, orthostasis, fatigue, malaise. Past Medical History Cardiac Medical History: Reports: Hyperlipidema Denies: Myocardial Infarction, Hypertension Pulmonary Medical History: Denies: Asthma Neurological Medical History: Reports: Migraine Denies: Seizures Endocrine Medical History: Reports: Diabetes Mellitus Type 1 GI Medical History: Denies: Hepatitis, Hiatal Hernia Hematology: Denies: Anemia, Sickle Cell Disease Past Surgical History Past Surgical History: Reports: Appendectomy, Section, Hysterectomy, Orthopedic Surgery - bilateral hands, carpal tunnel, left shoulder repair, Tons illectomy Denies: Amputation, Mastectomy, Pacemaker Social History Smoking Status: Current Every Day Smoker Hx Recreational Drug Use: No Hx Prescription Drug Abuse: No Family History Family History: Reviewed & Not Pertinent Parental Family History Reviewed: Yes Children Family History Reviewed: Yes Sibling(s) Family History Reviewed.: Yes Medication/Allergy Home Medications: Lisinopril 20 mg PO DAILY 11/03/18 Pantoprazole Sodium 40 mg PO DAILY 11/03/18 Rosuvastatin Calcium [Crestor 20 mg Tablet] 20 mg PO DAILY 11/03/18 Topiramate [Topamax] 150 mg PO DAILY 11/03/18 Insulin Lispro [Humalog Insulin (Lispro) 100 unit/mL] 28 PUMP DAILY 05/05/19 Isotretinoin [Claravis] 40 mg PO DAILY 05/05/19 Adalimumab [Humira] 40 mg SQ .WEEKLY 07/18/19 Besifloxacin HCl [Besivance 0.6% Oph Susp 5 ml] 1 drop OP ASDIR PRN 07/18/19 Bromfenac Sodium [Prolensa] 1.6 ml OP ASDIR PRN 07/18/19 Difluprednate [Durezol] 5 ml OP ASDIR PRN 07/18/19 Doxycycline Hyclate [Vibramycin 100 mg Tablet] 100 mg PO BID #14 tablet 06/27/20 Allergies/Adverse Reactions: codeine [Codeine] Allergy (Verified 07/18/19 10:29) ITCHING hydromorphone [From Dilaudid] Allergy (Verified 06/28/20 13:01) Review of Systems Constitutional: ABSENT: anorexia, chills, fatigue, fever(s), headache(s), weakness Eyes: ABSENT: visual disturbances Ears: ABSENT: hearing changes Nose, Mouth, and Throat: ABSENT: mouth pain, sore throat Cardiovascular: ABSENT: chest pain Respiratory: ABSENT: cough Gastrointestinal: PRESENT: other - Rectal pain and swelling. ABSENT: abdominal pain Genitourinary: ABSENT: dysuria Musculoskeletal: ABSENT: back pain Integumentary: PRESENT: lesions - Perianal abscess Neurological: ABSENT: confusion, convulsions, dizziness Psychiatric: PRESENT: anxiety Endocrine: ABSENT: cold intolerance, heat intolerance Hematologic/Lymphatic: ABSENT: easy bleeding, easy bruising Physical Exam Vital Signs: Intake & Output 06/27/20 06/28/20 06/29/20 06:59 06:59 06:59 Intake Total 0 Balance 0 General appearance: PRESENT: no acute distress, cooperative Head exam: PRESENT: atraumatic, normocephalic Eye exam: PRESENT: EOMI, PERRLA. ABSENT: scleral icterus Mouth exam: PRESENT: moist, neck supple Neck exam: ABSENT: meningismus, tenderness, thyromegaly, tracheal deviation Respiratory exam: PRESENT: unlabored. ABSENT: tachypnea, wheezes Cardiovascular exam: ABSENT: tachycardia Vascular exam: PRESENT: normal capillary refill GI/Abdominal exam: PRESENT: soft. ABSENT: distended, tenderness Rectal exam: PRESENT: other - 1.5 cm perianal abscess. There does not appear to be communication with the rectum. It is adjacent to the gluteal cleft. There is erythema and induration, as well as fluctuance. Extremities exam: ABSENT: clubbing Musculoskeletal exam: ABSENT: deformity Neurological exam: PRESENT: alert, awake, oriented to person, oriented to place, oriented to time, oriented to situation Psychiatric exam: PRESENT: agitated, anxious Focused psych exam: ABSENT: delusional Skin exam: ABSENT: cyanosis, jaundice Assessment & Plan - Diagnosis (1) Perianal abscess Is this a current diagnosis for this admission?: Yes - Time Anticipated Discharge Disposition: Home, Self Care Anticipated Discharge Timeframe: within 24 hours - Plan Summary Plan Summary: 54-year-old female with a perianal abscess, adjacent to the gluteal cleft. Differential includes perirectal abscess, versus skin abscess, versus hidradenitis, versus pilonidal cyst. I have offered the patient in-office incision and drainage. She has adamantly refused. She seems incredibly anxious. In light of this, I have arranged for operative drainage at [facility]. Dr. Mary will be performing the procedure. Risks/benefits were discussed, informed consent was obtained, and all questions were answered.
[2020-06-28] MEDS ORDERED: VANCOMYCIN HCL 1,000 MG in DEXTROSE 5%-WATER 250 ML IV PRN (13:25)
[2020-06-28] MEDS ORDERED: FENTANYL CITRATE INJ/PF 100 MCG/2 ML AMPUL ONE ×2 (13:49→16:16)
[2020-06-28] MEDS ORDERED: PROPOFOL INJ 200 MG/20 ML VIAL IV ONE (13:49)
[2020-06-28] MEDS ORDERED: MIDAZOLAM 2 MG/2 ML INJ ONE (13:49)
[2020-06-28] MEDS ORDERED: EPHEDRINE SULFATE INJ 50 MG/1 ML AMPULE ONE (13:49)
[2020-06-28] MEDS ORDERED: LIDOCAINE 0.5% INJ-PF (5 MG/ML) 50 ML SDV ONE (13:56)
[2020-06-28] MEDS ORDERED: BUPIVACAINE HCL 0.25 % INJ/PF (2.5 MG/1 ML) 30 ML VIAL ONE (13:56)
[2020-06-28 14:05] LABS: HEMOGLOBIN 13.5 g/dL (12.0-15.5); MEAN CORPUSCULAR HEMOGLOBIN 31.3 pg (27.0-33.4); MEAN CORPUSCULAR HGB CONC 34.6 g/dL (32.0-36.0); MEAN CORPUSCULAR VOLUME 91 fl (80-97); PLATELET COUNT 256 10^3/uL (150-450); RED CELL DISTRIBUTION WIDTH 13.1 % (11.5-14.0); WHITE BLOOD COUNT 7.1 10^3/uL (4.0-10.5)
[2020-06-28 14:31] LABS: ANION GAP 12 (5-19); BLOOD UREA NITROGEN 12 mg/dL (7-20); CALCIUM 9.4 mg/dL (8.4-10.2); CARBON DIOXIDE 19 mmol/L (22-30); CHLORIDE 107 mmol/L (98-107); GLUCOSE 111 mg/dL (75-110); POTASSIUM 4.3 mmol/L (3.6-5.0)
[2020-06-28] MEDS ORDERED: FENTANYL CITRATE INJ/PF 100 MCG/2 ML AMPUL IV PRN ×3 (15:30)
[2020-06-28] MEDS ORDERED: MORPHINE SULFATE 10 MG/ML INJ IV PRN (15:30)
[2020-06-28] MEDS ORDERED: DIPHENHYDRAMINE HCL 50 MG/ML VIAL IV PRN (15:30)
[2020-06-28] MEDS ORDERED: MEPERIDINE HCL/PF INJ 25 MG/1 ML DISP.SYRIN IV PRN (15:30)
[2020-06-28] MEDS ORDERED: PROMETHAZINE HCL INJ 25 MG/1 ML VIAL IV PRN ×2 (15:30)
[2020-06-28] MEDS ORDERED: ONDANSETRON HCL INJ/PF 4 MG/2 ML SDV IV PRN (15:30)
--- NOTE | 2020-06-28 15:44 | Operative Report ---
Operative Report DATE OF SURGERY: 06/28/20 PREOPERATIVE DIAGNOSIS: 1. Left posterior lateral perianal abscess. 2. Histo ry of hidradenitis suppurativa. 3. Chronic immunosuppression therapy. 4. Diabetes mellitus. 5. Smoker POSTOPERATIVE DIAGNOSIS: Same OPERATION: Examination under anesthesia of the anal canal; drainage of left posterior lateral perianal abscess SURGEON: VICKY STEPHENS ANESTHESIA: GA TISSUE REMOVED OR ALTERED: Pus COMPLICATIONS: None ESTIMATED BLOOD LOSS: Scant INTRAOPERATIVE FINDINGS: See below PROCEDURE: Patient taken from the preop pulmonary to the main operating room where general anesthesia was induced. She was placed in the prone jackknife position buttocks spread widely, prepped and draped in sterile fashion after taping the buttock. Surgical plan and surgical timeout were conducted. Findings were significant for a small external, collapsed hemorrhoids. Also noted were scars particularly in the left perianal area just adjacent to the perineum. The acute pathologic finding was a fullness with erythema along the patient's left posterior perianal tissue approximately 5 to 6 cm from the anal verge. The skin overlying this area just to the left of midline was anesthetized with 1% plain lidocaine. A radial incision was made with a #15 blade and hemostat used to enter the pus pocket. Approximately 10 cc of pus was evacuated. It was sent for Gram stain culture and sensitivity. Wound cavity irrigated thoroughly with saline. Hemostat used to explore cavity which was poorly developed likely due to patient's chronic immunosuppression and diabetes history. There appeared to be no tracking of the cavity. I examined the anal canal digitally with 1 and then 2 fingers. I then placed a hand-held retractor into the anal canal, and check for any pathology and there was none. There was no evidence of opening into the anal canal. The infection appeared to be more of a low buttock abscess rather than a true perianal abscess. Nonetheless no fistula was defined. At this point felt the operation was complete. A small amount of quarter inch packing was placed into the cavity. 4 x 4's applied. Patient tolerated procedure well, rotated into the supine position, extubated, taken recovery room stable condition.
[2020-06-28 18:12] VITALS: BP 116/69
== END 2020-06-28 18:00 | disposition home or self-care (01) ==
LOC: OROUT 12:11
PROVIDERS: ATTEND Surgery
DX: K61.0 Anal abscess (principal); L73.2 Hidradenitis suppurativa; K64.4 Residual hemorrhoidal skin tags; E10.40 Type 1 diabetes mellitus with diabetic neuropathy, unspecified; E78.5 Hyperlipidemia, unspecified; K30 Functional dyspepsia; F17.200 Nicotine dependence, unspecified, uncomplicated; Z03.818 Encounter for observation for suspected exposure to other biological agents ruled out; Z79.899 Other long term (current) drug therapy
CPT/HCPCS: 36415; 87070; 87205; 85027; 80048; 46050; U0003; J2250; J3010; J3490; J7060; J2704; J3370; C9803; 87075; 87635; J0330